=== PATIENT | male | born 1950 | race African-American/Black ===

== ENCOUNTER → 2023-10-07 07:30 | Outpatient (REF) | payer OTHER, SELFPAY ==
[2023-10-07 08:46] LABS: ALT (SGPT) 20 U/L (0-50); AST (SGOT) 24 U/L (17-59); Albumin 3.8 g/dl (3.5-5.0); Alkaline Phosphatase 92 U/L (38-126); Blood Urea Nitrogen 20 mg/dl (9-20); Calcium 10.5 mg/dl (8.4-10.2); Carbon Dioxide 30 mmol/L (22-30); Chloride 98 mmol/L (98-107); Glucose 247 mg/dl (70-99); HDL Cholesterol 38 mg/dl; LDL Cholesterol, Calculated 133 mg/dl; Potassium 4.4 mmol/L (3.5-5.1); Sodium 139 mmol/L (135-145); Total Cholesterol 210 mg/dl (50-199); Total Protein 8.4 g/dl (6.3-8.2); Triglyceride 197 mg/dl (10-149); Very Low Density Lipoprotein 39 mg/dl (0-30); eGFR > 60.00
[2023-10-07 08:47] LABS: Intact PTH 14.6 pg/ml (13.6-85.8)
== END ==
LOC: REG 07:30
PROVIDERS: ATTENDING PHYSICIAN Nurse Practitioner Family
DX: E83.52 Hypercalcemia (principal); E78.2 Mixed hyperlipidemia; R97.20 Elevated prostate specific antigen [PSA]; E55.9 Vitamin D deficiency, unspecified; Z12.5 Encounter for screening for malignant neoplasm of prostate
CPT/HCPCS: 36415; 80053; 80061; 82306; 83970; G0103

== ENCOUNTER 2023-10-29 12:19 | Inpatient (IN) | payer OTHER, SELFPAY ==
[2023-10-29] VITALS (36 sets, daily range): BP systolic 80–177; BP diastolic 22–136; BMI 23.6; BMI 23.9
[2023-10-29 10:11] LABS: % Basophils 0.7 % (0-2); % Immature Granulocytes 0.6 % (0-0.5); % Monocytes 4.7 % (1.7-9.3); Absolute Basophils 0.1 10^3/uL (0-0.2); Absolute Immature Granulocytes 0.1 10^3/uL (0-0.05); Absolute Lymphocytes 2.9 10^3/uL (1.2-3.4); Absolute Monocytes 0.8 10^3/uL (0.1-0.6); Absolute Neutrophils 12.3 10^3/uL (1.4-6.5); Hematocrit 49.5 % (39.0-52.0); Mean Corp Hgb Conc. 32.3 g/dL (33.0-37.0); Mean Corpuscular Hgb 24.1 pg (27.0-31.0); Mean Corpuscular Volume 74.5 fL (80.0-94.0); Mean Platelet Volume 10.8 fL (7.4-10.4); Nucleated Red Blood Cells % 0 % (-); Platelet Count 483 10^3/uL (130-400); Red Blood Cell Count 6.64 10^6/uL (4.70-6.10); Red Cell Dist. Width 19.3 % (11.5-14.5); White Blood Cell Count 16.2 10^3/uL (4.8-10.8)
[2023-10-29] MEDS: CARDIZEM 10 MG IV ×2 (10:11→10:38)
[2023-10-29] MEDS: NSS 1000 IV ×2 (10:14→13:42)
--- NOTE | 2023-10-29 10:18 | ED.GENMED ---
History of Present Illness
<Alecia Mcnair PA-C - Last Filed: 10/29/23 13:04>
General
Chief Complaint: Breathing Problem
Source: patient
Exam Limitations: none
Time Seen by Provider: 10/29/23 09:54
Nursing documentation reviewed up to this point in time: agreed with
Travel History
Have you had any contact with someone who has COVID-19?: No
Do you have any symptoms of coronavirus? Fever > 100 degrees, chills, cough, shortness of breath, sore throat, loss of taste or smell, muscle aches, or headache?: Yes
Symptoms:: SOB
History of Present Illness
History of Present Illness:
Patient is a 73-year-old male who is presenting for shortness of breath since yesterday. Patient says that he intermittently had hiccups yesterday and felt short of breath, he had a slight discomfort while he was having the hiccups but that
resolved yesterday. Otherwise he just feels fatigued and short of breath today. He has no pleuritic chest pain. He has had no black or tarry stools. No fevers or chills, cough cold symptoms, edema in his legs. Is no history of heart disease.
Back in February the patient was admitted for abdominal pain, CT showing acute diverticulitis. At that time he had thickening of his distal stomach and proximal duodenum with a mass that was concerning for possible gastric or duodenal carcinoma. He
also had a right upper quadrant lymphadenopathy suspicious for yosef metastatic disease. It was very concerning that the patient had a malignancy and he was offered an endoscopy and for biopsy but he refused, and he was discharged home. Patient
says since then he has had not had any workup for this possible malignancy.
Patient has never had a DVT or PE, he has not had any recent long travel.
Past History
<Alecia Mcnair PA-C - Last Filed: 10/29/23 13:04>
Past History
ED Past Medical History: GERD, HTN and Other (Patient has had abscesses in the past on different parts of his body, rheumatoid arthritis); Negative Hypercholesterolemia, IDDM or NIDDM
ED Past Surgical History: None
Social History
Tobacco: Former smoker
Alcohol: None
Drug: None
Personal:
Living: with family
Employment: Retired
Review of Systems
<Alecia Mcnair PA-C - Last Filed: 10/29/23 13:04>
Review of Systems
Allergies reviewed?: Yes
All Other Systems: Not applicable
Phy Exam
<JACIEL Soriano Last Filed: 10/29/23 13:04>
Physical Exam
Physical Exam:
GENERAL: Alert , in no apparent distress, pale
EYE: pupils equal and reactive
NECK: Supple
ENT: o/p clr, mmm.
CARDIAC: Tachycardic, no edema
LUNGS: Clear breath sounds bilaterally, no acute respiratory distress, no wheezes/rales/rhonchi, no rales
ABDOMEN: Soft, without focal tenderness, no r/g, no cvat, normal bowel sounds
heme neg brown stool
NEUROLOGICAL: Alert and oriented, no focal neuro deficits
SKIN: Warm and dry, skin intact.
MUSCULOSKELETAL: No edema, well perfused. neg carlos's sign
PSYCH: Normal and appropriate interaction.
Scores
<Alecia Mcnair PA-C - Last Filed: 10/29/23 13:04>
[id number] Score for Afib Stroke Risk
Age in Years (65=0, 65-74=1, >/=75=2): 65-74
Sex (Female=+1): Male
Congestive Heart Failure History (Yes=+1): No
Hypertension History (Yes=+1): Yes
Stroke/TIA/Thromboembolism History (Yes=+2): No
Vascular Disease History (Yes=+1): No
Diabetes Mellitus (Yes=+1): Yes
Score: 3
Anticoagulation Recommendations: Recommend anticoagulation (as validated in nonvalvular fib)
Heart Failure Risk
Heart Failure Risk Score: Not Applicable
<Alex Blake MD - Last Filed: 10/29/23 13:30>
[id number] Score for Afib Stroke Risk
Score: 3
Anticoagulation Recommendations: Recommend anticoagulation (as validated in nonvalvular fib)
Course
<Alecia Mcnair PA-C - Last Filed: 10/29/23 13:04>
Orders/Labs/Results
Orders:
Orders
10/29/23 Breakfast
NPO
Allow oral meds: No
Allow clear liquids: No
10/29/23 09:53
EKG [Electrocardiogram (*1)] Urgent
Reason for Study: Tachycardia
EKG- Treatment ONCE
10/29/23 09:55
Cardiac Monitoring- Treatment ONCE
IV Insert/Care/Rem.- Treatment PRN
10/29/23 09:58
Complete Blood Count/With Diff Urgent
Comprehensive Metabolic Panel Urgent
Glycohemoglobin (HgbA1c) Urgent
Magnesium Urgent
Comment: ADD ON
NT-proBNP Urgent
Troponin I Urgent
10/29/23 10:03
Diltiazem HCl [Cardizem] 10 mg IV NOW STA
10/29/23 10:14
0.9% Sodium Chloride 1000 ml [Nss] 1,000 ml IV BOLUS
10/29/23 10:23
Diltiazem HCl [Cardizem] 10 mg IV NOW STA
10/29/23 10:30
Diltiazem 125 mg/125 ml Nss [Cardizem] 125 mg in 125 ml IV PER PROTOCOL
Initial dose in mg/hr, then titrate:: 5
Titrate to keep:: Heart rate 80-100 bpm
Titrate by mg/hr:: 5 mg/hr
Frequency of titrations (minutes):: 15
Maximum dose in mg/hr:: 15
10/29/23 10:36
US Legs, Bilateral [US Periph Venous LOWER Ext Jonathon] Urgent
Comment:
Reason For Exam: sob/leg edema
10/29/23 10:44
Add On- LAB Urgent
Tests Added?: magnesium
10/29/23 10:45
Diltiazem 125 mg/125 ml Nss [Cardizem] 125 mg in 125 ml IV PER PROTOCOL
Initial dose in mg/hr, then titrate:: 5
Titrate to keep:: Heart rate 80-100 bpm
Titrate by mg/hr:: 5 mg/hr
Frequency of titrations (minutes):: 15
Maximum dose in mg/hr:: 15
10/29/23 10:48
BHB [B-Hydroxybutyrate] Urgent
Urinalysis Reflex To Culture Urgent
Date Specimen was Collected: 10/29/23
Time Specimen was Collected: 10:46
Venous Blood Gas Urgent
%Oxygen/Room Air: 21
10/29/23 10:53
Insulin Human Regular [Novolin R] 7 units IV NOW STA
CR Chest Portable - 1 View Urgent
Comment:
Reason For Exam: sob
Reason Study Needs to be Portable: Patient Unstable
10/29/23 11:00
Reg Insulin 100 Units/100 ml [Novolin R Insulin Infusion] 100 units in 100 ml IV ORDERED RATE
10/29/23 11:12
0.9% Sodium Chloride 500 ml [Nss] 500 ml IV BOLUS
10/29/23 11:13
Add On- LAB Urgent
Tests Added?: Hemoglobin A1c
10/29/23 11:25
Heparin 6,000 units IV NOW STA
Nursing to Place Non Medication Order As Directed
Physician Order: PTT 6 hours after initial start of Heparin infusion
Above order entered?: Yes
10/29/23 11:30
Heparin 18709 Units/250 ml 25,000 units in 250 ml IV PER PROTOCOL
Weight to be used for heparin protocol in kilograms (kg):: 74.5
Protocol:: DVT/PE
PTT Goal Range to be used:: PTT 73 to 111 seconds
Order type:: Initial
INITIAL Infusion Dose (UNITS/KG/hr) & then follow protocol:: 18 units/kg/hr
Infusion Dose in UNITS/hr & then follow protocol (UNITS/hr):: 1,300
INFUSION RATE in mL/hr & then follow protocol (mL/hr):: 13
For DVT/PE algorithm, re-bolus for low PTT?: Yes
PTT less than or equal to 64 seconds:: Re-bolus 80 units/kg (max 10,000units). Increase by 300 units/hr
(+ 3mL/hr)
PTT 64.1 to 72.9 seconds:: Re-bolus 40 units/kg (max 5,000 units). Increase by 200 units/hr
(+ 2mL/hr)
PTT 73 to 111 seconds:: Target Range. No change in rate.
PTT 111.1 to 130.9 seconds:: Decrease rate by 200 units/hr (- 2 mL/hr)
PTT 131 to 199.9 seconds:: HOLD for 1 hr. Then decrease by 200 units/hr (- 2mL/hr)
PTT greater than or equal to 200 seconds:: HOLD for 2 hrs & Notify Provider. Then decrease by 300 units/hr
(- 3mL/hr)
Lab follow-up:: Each change, PTT q6h until 2 consecutive are therapeutic. Then
PTT daily.
10/29/23 11:34
PTT Urgent
Comment: Obtain baseline before beginning heparin infusion if not already collected
10/29/23 11:43
Metoprolol [Lopressor] 5 mg IV NOW STA
10/29/23 11:48
Metoprolol [Lopressor] 5 mg .ROUTE .STK-MED ONE
10/29/23 11:49
Heparin See Dose Instructions IV PRN PRN
10/29/23 11:50
Heparin See Dose Instructions IV PRN PRN
10/29/23 11:53
EKG [Electrocardiogram (*1)] Urgent
Reason for Study: Atrial Fibrillation
EKG- Treatment ONCE
10/29/23 12:01
Admit/Transfer Patient As Directed
Co-Sign Provider:
Level of Care: Inpatient admission
Assign to:: ICU
Physician / Group: eleno maya
Diagnosis: afib with RVR,DKA
Reason for Hospitalization: afib with RVR,DKA
Expected length of stay greater than two midnights?: Yes
ELOS- Estimated Length of Stay in days: 3
I certify the patient meets the requirements for IP care: Yes
10/29/23 12:02
Code Status As Directed
Resuscitation Status: Full Code
10/29/23 12:08
Echo 2D MMode Color/Doppler [Echo 2D MMode Color/Doppler] Routine
Reason for Study: new afib
10/29/23 12:11
Consult Cardiology [CARDIOLOGY CONSULT] Urgent
Consulting Provider: Willow Lafleur
Was physician already notified: Yes
Modeling And Simulation Analyst Consult Urgent
Consulting Provider: Anoop Ness
Was physician already notified: Yes
10/29/23 12:18
Glucose Urgent
10/29/23 13:12
0.9% Sodium Chloride 1000 ml [Nss] 1,000 ml IV 1,000 mls/hr
Dextrose 5%/0.45%Sodchl 1000ML [D5/0.45%NaCl] 1,000 ml IV 100 mls/hr
Reg Insulin 100 Units/100 ml [Novolin R Insulin Infusion] 100 units in 100 ml IV PER PROTOCOL
Initial dose in units/hr, then titrate:: 7
10/29/23 13:12
Activity As Directed
Activity Level: As Tolerated
Bedside Glucose Monitoring As Directed
Frequency: Q1H
Intake/ Output As Directed
Frequency: Per unit guidelines
Notify MD As Directed
Notify physician if: Nurse to contact provider when glucose reaches 250 to obtain orders for D5 0.45 NaCl
Vital Signs As Directed
Frequency: Per unit guidelines
10/29/23 14:00
BMP [Basic Metabolic Panel] Q4H
Troponin I Q6H
10/29/23 16:00
Potassium Q2
Comment: report result to provider till Potassium >/= 3.3 to 5.3 mEq/L
10/29/23 17:36
PTT Urgent
10/29/23 18:00
BMP [Basic Metabolic Panel] Q4H
10/29/23 20:00
Potassium Q2
Comment: report result to provider till Potassium >/= 3.3 to 5.3 mEq/L
Troponin I Q6H
10/29/23 22:00
BMP [Basic Metabolic Panel] Q4H
10/30/23 00:00
Potassium Q2
Comment: report result to provider till Potassium >/= 3.3 to 5.3 mEq/L
10/30/23 02:00
BMP [Basic Metabolic Panel] Q4H
Potassium Q2
Comment: report result to provider till Potassium >/= 3.3 to 5.3 mEq/L
10/30/23 04:00
Potassium Q2
Comment: report result to provider till Potassium >/= 3.3 to 5.3 mEq/L
10/30/23 06:00
BMP [Basic Metabolic Panel] Q4H
Basic Metabolic Panel IN AM
Complete Blood Count/With Diff IN AM
10/30/23 10:00
BMP [Basic Metabolic Panel] Q4H
10/31/23 06:00
Basic Metabolic Panel IN AM
Complete Blood Count/With Diff IN AM
Abnormal Lab Results
10/29/23 10/29/23 10/29/23
09:58 10:48 12:18
WBC 16.2 H 10^3/uL
(4.8-10.8)
RBC 6.64 H 10^6/uL
(4.70-6.10)
MCV 74.5 L fL
(80.0-94.0)
MCH 24.1 L pg
(27.0-31.0)
MCHC 32.3 L g/dL
(33.0-37.0)
RDW 19.3 H %
(11.5-14.5)
Plt Count 483 H 10^3/uL
(130-400)
MPV 10.8 H fL
(7.4-10.4)
Abs Immat Gran (auto) 0.1 H 10^3/uL
(0-0.05)
Absolute Neuts (auto) 12.3 H 10^3/uL
(1.4-6.5)
Absolute Monos (auto) 0.8 H 10^3/uL
(0.1-0.6)
Immature Gran % 0.6 H %
(0-0.5)
Neutrophils % 76.0 H %
(42.2-75.2)
Lymphocytes % 18.0 L %
(20.5-51.1)
VBG pCO2 30 L mmHg
(35-48)
VBG pO2 153 H mmHg
(30-50)
VBG HCO3 16.6 L mmol/L
(22-27)
Sodium 125 L mmol/L
(135-145)
Potassium 5.6 H mmol/L
(3.5-5.1)
Chloride 84 L mmol/L
(98-107)
Carbon Dioxide 17 L mmol/L
(22-30)
BUN 41 H mg/dl
(9-20)
Creatinine 1.8 H mg/dL
(0.7-1.3)
Glucose 899 H* mg/dl 652 H* mg/dl
(70-99) (70-99)
Hemoglobin A1c 14.1 H %
(4.0-5.6)
Calcium 12.5 H mg/dl
(8.4-10.2)
Magnesium 3.0 H mg/dl
(1.6-2.3)
Alkaline Phosphatase 139 H U/L
(38-126)
Total Protein 9.1 H g/dl
(6.3-8.2)
Urine Ketones 2+ A
(Negative)
Urine Glucose 3+ A
(Negative)
B-Hydroxybutyrate > 6.00 H mmol/L
(0.02-0.27)
10/29/23 09:58
10/29/23 12:18
Vital Signs
Initial and Last Documented VS:
Initial Vital Signs
Temp
97.7 F
10/29/23 09:43
Last Documented Vital Signs
Temp Pulse Resp BP Pulse Ox
98.1 F 105 18 95/52 96
10/29/23 13:20 10/29/23 12:15 10/29/23 12:15 10/29/23 12:15 10/29/23 09:53
<Alex Blake MD - Last Filed: 10/29/23 13:30>
Orders/Labs/Results
Orders:
Orders
10/29/23 Breakfast
NPO
Allow oral meds: No
Allow clear liquids: No
10/29/23 09:53
EKG [Electrocardiogram (*1)] Urgent
Reason for Study: Tachycardia
EKG- Treatment ONCE
10/29/23 09:55
Cardiac Monitoring- Treatment ONCE
IV Insert/Care/Rem.- Treatment PRN
10/29/23 09:58
Complete Blood Count/With Diff Urgent
Comprehensive Metabolic Panel Urgent
Glycohemoglobin (HgbA1c) Urgent
Magnesium Urgent
Comment: ADD ON
NT-proBNP Urgent
Troponin I Urgent
10/29/23 10:03
Diltiazem HCl [Cardizem] 10 mg IV NOW STA
10/29/23 10:14
0.9% Sodium Chloride 1000 ml [Nss] 1,000 ml IV BOLUS
10/29/23 10:23
Diltiazem HCl [Cardizem] 10 mg IV NOW STA
10/29/23 10:30
Diltiazem 125 mg/125 ml Nss [Cardizem] 125 mg in 125 ml IV PER PROTOCOL
Initial dose in mg/hr, then titrate:: 5
Titrate to keep:: Heart rate 80-100 bpm
Titrate by mg/hr:: 5 mg/hr
Frequency of titrations (minutes):: 15
Maximum dose in mg/hr:: 15
10/29/23 10:36
US Legs, Bilateral [US Periph Venous LOWER Ext Jonathon] Urgent
Comment:
Reason For Exam: sob/leg edema
10/29/23 10:44
Add On- LAB Urgent
Tests Added?: magnesium
10/29/23 10:45
Diltiazem 125 mg/125 ml Nss [Cardizem] 125 mg in 125 ml IV PER PROTOCOL
Initial dose in mg/hr, then titrate:: 5
Titrate to keep:: Heart rate 80-100 bpm
Titrate by mg/hr:: 5 mg/hr
Frequency of titrations (minutes):: 15
Maximum dose in mg/hr:: 15
10/29/23 10:48
BHB [B-Hydroxybutyrate] Urgent
Urinalysis Reflex To Culture Urgent
Date Specimen was Collected: 10/29/23
Time Specimen was Collected: 10:46
Venous Blood Gas Urgent
%Oxygen/Room Air: 21
10/29/23 10:53
Insulin Human Regular [Novolin R] 7 units IV NOW STA
CR Chest Portable - 1 View Urgent
Comment:
Reason For Exam: sob
Reason Study Needs to be Portable: Patient Unstable
10/29/23 11:00
Reg Insulin 100 Units/100 ml [Novolin R Insulin Infusion] 100 units in 100 ml IV ORDERED RATE
10/29/23 11:12
0.9% Sodium Chloride 500 ml [Nss] 500 ml IV BOLUS
10/29/23 11:13
Add On- LAB Urgent
Tests Added?: Hemoglobin A1c
10/29/23 11:25
Heparin 6,000 units IV NOW STA
Nursing to Place Non Medication Order As Directed
Physician Order: PTT 6 hours after initial start of Heparin infusion
Above order entered?: Yes
10/29/23 11:30
Heparin 55149 Units/250 ml 25,000 units in 250 ml IV PER PROTOCOL
Weight to be used for heparin protocol in kilograms (kg):: 74.5
Protocol:: DVT/PE
PTT Goal Range to be used:: PTT 73 to 111 seconds
Order type:: Initial
INITIAL Infusion Dose (UNITS/KG/hr) & then follow protocol:: 18 units/kg/hr
Infusion Dose in UNITS/hr & then follow protocol (UNITS/hr):: 1,300
INFUSION RATE in mL/hr & then follow protocol (mL/hr):: 13
For DVT/PE algorithm, re-bolus for low PTT?: Yes
PTT less than or equal to 64 seconds:: Re-bolus 80 units/kg (max 10,000units). Increase by 300 units/hr
(+ 3mL/hr)
PTT 64.1 to 72.9 seconds:: Re-bolus 40 units/kg (max 5,000 units). Increase by 200 units/hr
(+ 2mL/hr)
PTT 73 to 111 seconds:: Target Range. No change in rate.
PTT 111.1 to 130.9 seconds:: Decrease rate by 200 units/hr (- 2 mL/hr)
PTT 131 to 199.9 seconds:: HOLD for 1 hr. Then decrease by 200 units/hr (- 2mL/hr)
PTT greater than or equal to 200 seconds:: HOLD for 2 hrs & Notify Provider. Then decrease by 300 units/hr
(- 3mL/hr)
Lab follow-up:: Each change, PTT q6h until 2 consecutive are therapeutic. Then
PTT daily.
10/29/23 11:34
PTT Urgent
Comment: Obtain baseline before beginning heparin infusion if not already collected
10/29/23 11:43
Metoprolol [Lopressor] 5 mg IV NOW STA
10/29/23 11:48
Metoprolol [Lopressor] 5 mg .ROUTE .STK-MED ONE
10/29/23 11:49
Heparin See Dose Instructions IV PRN PRN
10/29/23 11:50
Heparin See Dose Instructions IV PRN PRN
10/29/23 11:53
EKG [Electrocardiogram (*1)] Urgent
Reason for Study: Atrial Fibrillation
EKG- Treatment ONCE
10/29/23 12:01
Admit/Transfer Patient As Directed
Co-Sign Provider:
Level of Care: Inpatient admission
Assign to:: ICU
Physician / Group: eleno maya
Diagnosis: afib with RVR,DKA
Reason for Hospitalization: afib with RVR,DKA
Expected length of stay greater than two midnights?: Yes
ELOS- Estimated Length of Stay in days: 3
I certify the patient meets the requirements for IP care: Yes
10/29/23 12:02
Code Status As Directed
Resuscitation Status: Full Code
10/29/23 12:08
Echo 2D MMode Color/Doppler [Echo 2D MMode Color/Doppler] Routine
Reason for Study: new afib
10/29/23 12:11
Consult Cardiology [CARDIOLOGY CONSULT] Urgent
Consulting Provider: Willow Lafleur
Was physician already notified: Yes
Modeling And Simulation Analyst Consult Urgent
Consulting Provider: Anoop Ness
Was physician already notified: Yes
10/29/23 12:18
Glucose Urgent
10/29/23 13:12
0.9% Sodium Chloride 1000 ml [Nss] 1,000 ml IV 1,000 mls/hr
Dextrose 5%/0.45%Sodchl 1000ML [D5/0.45%NaCl] 1,000 ml IV 100 mls/hr
Reg Insulin 100 Units/100 ml [Novolin R Insulin Infusion] 100 units in 100 ml IV PER PROTOCOL
Initial dose in units/hr, then titrate:: 7
10/29/23 13:12
Activity As Directed
Activity Level: As Tolerated
Bedside Glucose Monitoring As Directed
Frequency: Q1H
Intake/ Output As Directed
Frequency: Per unit guidelines
Notify MD As Directed
Notify physician if: Nurse to contact provider when glucose reaches 250 to obtain orders for D5 0.45 NaCl
Vital Signs As Directed
Frequency: Per unit guidelines
10/29/23 14:00
BMP [Basic Metabolic Panel] Q4H
Troponin I Q6H
10/29/23 16:00
Potassium Q2
Comment: report result to provider till Potassium >/= 3.3 to 5.3 mEq/L
10/29/23 17:36
PTT Urgent
10/29/23 18:00
BMP [Basic Metabolic Panel] Q4H
10/29/23 20:00
Potassium Q2
Comment: report result to provider till Potassium >/= 3.3 to 5.3 mEq/L
Troponin I Q6H
10/29/23 22:00
BMP [Basic Metabolic Panel] Q4H
10/30/23 00:00
Potassium Q2
Comment: report result to provider till Potassium >/= 3.3 to 5.3 mEq/L
10/30/23 02:00
BMP [Basic Metabolic Panel] Q4H
Potassium Q2
Comment: report result to provider till Potassium >/= 3.3 to 5.3 mEq/L
10/30/23 04:00
Potassium Q2
Comment: report result to provider till Potassium >/= 3.3 to 5.3 mEq/L
10/30/23 06:00
BMP [Basic Metabolic Panel] Q4H
Basic Metabolic Panel IN AM
Complete Blood Count/With Diff IN AM
10/30/23 10:00
BMP [Basic Metabolic Panel] Q4H
10/31/23 06:00
Basic Metabolic Panel IN AM
Complete Blood Count/With Diff IN AM
Abnormal Lab Results
10/29/23 10/29/23 10/29/23
09:58 10:48 12:18
WBC 16.2 H 10^3/uL
(4.8-10.8)
RBC 6.64 H 10^6/uL
(4.70-6.10)
MCV 74.5 L fL
(80.0-94.0)
MCH 24.1 L pg
(27.0-31.0)
MCHC 32.3 L g/dL
(33.0-37.0)
RDW 19.3 H %
(11.5-14.5)
Plt Count 483 H 10^3/uL
(130-400)
MPV 10.8 H fL
(7.4-10.4)
Abs Immat Gran (auto) 0.1 H 10^3/uL
(0-0.05)
Absolute Neuts (auto) 12.3 H 10^3/uL
(1.4-6.5)
Absolute Monos (auto) 0.8 H 10^3/uL
(0.1-0.6)
Immature Gran % 0.6 H %
(0-0.5)
Neutrophils % 76.0 H %
(42.2-75.2)
Lymphocytes % 18.0 L %
(20.5-51.1)
VBG pCO2 30 L mmHg
(35-48)
VBG pO2 153 H mmHg
(30-50)
VBG HCO3 16.6 L mmol/L
(22-27)
Sodium 125 L mmol/L
(135-145)
Potassium 5.6 H mmol/L
(3.5-5.1)
Chloride 84 L mmol/L
(98-107)
Carbon Dioxide 17 L mmol/L
(22-30)
BUN 41 H mg/dl
(9-20)
Creatinine 1.8 H mg/dL
(0.7-1.3)
Glucose 899 H* mg/dl 652 H* mg/dl
(70-99) (70-99)
Hemoglobin A1c 14.1 H %
(4.0-5.6)
Calcium 12.5 H mg/dl
(8.4-10.2)
Magnesium 3.0 H mg/dl
(1.6-2.3)
Alkaline Phosphatase 139 H U/L
(38-126)
Total Protein 9.1 H g/dl
(6.3-8.2)
Urine Ketones 2+ A
(Negative)
Urine Glucose 3+ A
(Negative)
B-Hydroxybutyrate > 6.00 H mmol/L
(0.02-0.27)
03/03/24 09:58
10/29/23 12:18
Vital Signs
Initial and Last Documented VS:
Initial Vital Signs
Temp
97.7 F
10/29/23 09:43
Last Documented Vital Signs
Temp Pulse Resp BP Pulse Ox
98.1 F 105 18 95/52 96
10/29/23 13:20 10/29/23 12:15 10/29/23 12:15 10/29/23 12:15 10/29/23 09:53
<Alecia Mcnair PA-C - Last Filed: 10/29/23 13:04>
MDM/Problems Addressed
Differential Diagnosis Includes:
SVT, atrial fibrillation, PE
MDM/Problems Addressed:
73-year-old male presenting for shortness of breath since yesterday without significant chest discomfort. Patient was found to be tachycardic in the 150s, blood pressure slightly soft in the low 100s. He is awake and alert and oriented and in no
respiratory distress.
We tried vagal maneuvers which did slightly slow him down however it looks irregular, I suspect that he has a flutter with 2-1 block. He will be given an IV dose of Cardizem with fluid bolus and likely a Cardizem drip. Will work him up for PE as
it sounds as if he has malignant adenocarcinoma from previous imaging, I would be concerned about a PE causing new onset A-fib
10/29/2023 1057 AM patient was found to have an RUDY and cannot have a CT scan of his chest. Patient's pulse ox is normal, PE is less likely at this point.
Patient's blood sugar is 900, his anion gap is 25. He apparently was told about 2 months ago that his blood sugar was elevated but he chose not to treat it.
Patient is agreeable to insulin at this point, it is still questionable whether he will want a workup for malignancy
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
cdsvasc is 3
heparin initiated;
<Alecia Mcnair PA-C - Last Filed: 10/29/23 13:04>
*Critical Care Note
Total Time (30-74mins, 75-104mins- exclusive of procedures): Not Applicable (45 min - rate control/cv stability, consultants)
ED Attending Note
<Alecia Mcnair PA-C - Last Filed: 10/29/23 13:04>
-
Portions of this chart may have been created with voice recognition software.� Occasional wrong word or��sound alike� substitutions may have occurred due to the inherent limitations of voice recognition software.
<Alex Blake MD - Last Filed: 10/29/23 13:30>
ED Attending Note
Patient seen and examined by attending physician: Yes
ED Attending Note:
Patient with history of hypertension and COPD, presents to ED secondary to increasing shortness of breath over the past 2 days, especially with exertion. Patient states that symptoms started yesterday afternoon while he was sitting down watching
TV. Symptoms improved spontaneously shortly afterwards, but returned and has been ongoing since. Denies chest pain. Denies nausea, vomiting, or diarrhea. Denies fever. Denies coughing. Denies back pain. Denies leg pain or swelling. Denies
recent travel or surgery. Denies sore throat. Denies headache. Denies recent change in medications or diet. Denies recent weight changes.
Physical Exam
General: mild distress, acutely ill. afebrile. tachycardic.
Head: nc/at. eomi
Neck: supple. no meningeal signs.
Heart: tachycardic, no murmur. equal radial pulses.
Lungs: no acute respiratory distress. clear bilaterally
Abdomen: normal bowel sounds. not tender.
Neuro: alert and oriented. no focal neurological deficits
Skin: no rash
Psychiatric: well kept. interactive and cooperative
Extremities: no edema. no calf tenderness.
Pt evaluated immediately upon arrival. Patient found to be tachycardic, in narrow complex rhythm and regular. SVT versus atrial flutter. Patient given IV fluids and Cardizem bolus with infusion. Unfortunately, after multiple doses of Cardizem
IV, lower than recommended weight-based dosing due to labile blood pressure, patient's heart rate remains elevated. As such, decision made to administer Lopressor IV 5 mg, with improved heart rate. Repeat EKG reveals rate controlled a flutter with
variable block. In reviewing patient's previous imaging studies, there is concern for potential pulmonary embolism as source for his onset of symptoms. As such, CTA chest ordered. Unfortunately, patient blood work revealed acute renal failure
along with hyperglycemia with anion gap. As such, CTA chest canceled and lower extremity Doppler study ordered instead. In addition, as patient is high risk for PE along with new onset atrial fibrillation, patient started on heparin protocol.
Patient will be admitted to ICU for further evaluation and treatment.
Insulin infusion started.
Critical care statement: A total of 45 minutes of critical care time was provided for this patient. This includes management of unstable vital signs, evaluation of the patient at bedside, reviewing the patient's pertinent medical records, discussion
with consultants, review of old EKGs and review of pertinent medical records. This time with separate from time utilized to perform the aforementioned documented procedures
Discharge Plan
Departure
Patient Disposition: Admit
Date of Disposition: 10/29/23
Time of Disposition: 10:41
Admit to: ICU
Presentation/result/management discussed w/ accepting MD/DO: Hospitalist
Condition: Fair
Covid-19: Not Applicable
Discharge Problem:
Atrial fibrillation, new onset, Atrial fibrillation with RVR, Acute kidney insufficiency
Interventions
Interventions:
*Risk Screen - Suicide Last Done: 10/29/23 13:30
*General Assessment Last Done: 10/29/23 13:14
*Neglect/Abuse Screening Last Done: 10/29/23 13:14
ED- Fall Risk Assessment Last Done: 10/29/23 13:14
*Nursing Disposition Last Done: 10/29/23 13:15
ED- Cardiac Assessment Last Done: 10/29/23 12:12
ED- Pulmonary Assessment Last Done: 10/29/23 13:14
Discharge Date and Time
Discharge Date/Time: 10/29/23 13:16
[2023-10-29 10:33] LABS: NT-proBNP 458 pg/ml; Troponin I < 0.012 ng/ml
[2023-10-29 10:34] LABS: AST (SGOT) 23 U/L (17-59); Albumin 4.7 g/dl (3.5-5.0); Alkaline Phosphatase 139 U/L (38-126); Blood Urea Nitrogen 41 mg/dl (9-20); Calcium 12.5 mg/dl (8.4-10.2); Carbon Dioxide 17 mmol/L (22-30); Chloride 84 mmol/L (98-107); Estimated Creatinine Clearance 38 ml/min; Potassium 5.6 mmol/L (3.5-5.1); Sodium 125 mmol/L (135-145); Total Bilirubin 1.1 mg/dl (0.2-1.3); Total Protein 9.1 g/dl (6.3-8.2)
[2023-10-29] MEDS: CARDIZEM 125 IV ×2 (10:37→20:48)
[2023-10-29 10:43] LABS: Glucose 899 mg/dl (70-99)
[2023-10-29 11:03] LABS: ALT (SGPT) 30 U/L (0-50)
[2023-10-29] MEDS: NOVOLIN R 7 UNITS IV (11:07)
[2023-10-29] MEDS: NOVOLIN R INSULIN INFUSION 100 IV (11:12)
[2023-10-29 11:13] LABS: Venous Blood Gas B.E. -7.6 mmol/L (-4 to +4); Venous Blood Gas HCO3 16.6 mmol/L (22-27); Venous Blood Gas pCO2 30 mmHg (35-48); Venous Blood Gas pH 7.35 (7.32-7.43); Venous Blood Gas pO2 153 mmHg (30-50)
[2023-10-29 11:17] LABS: Urine Albumin Negative (Neg - Trace); Urine Bilirubin Negative (Negative); Urine Character Clear (Clear); Urine Color Yellow; Urine Glucose 3+ (Negative); Urine Ketone 2+ (Negative); Urine Leukocyte Negative (Negative); Urine Nitrite Negative (Negative); Urine Occult Blood Negative (Negative); Urine Urobilinogen Negative (Neg - 1+)
[2023-10-29] MEDS: NSS 500 IV (11:19)
[2023-10-29 11:30] LABS: B-Hydroxybutyrate > 6.00 mmol/L (0.02-0.27)
[2023-10-29] MEDS: HEPARIN 6000 UNITS IV (11:36)
[2023-10-29 11:52] LABS: APTT 30.5 Sec (23.4-35.0)
[2023-10-29] MEDS: HEPARIN 25000 UNITS/250 ML IV (11:56)
[2023-10-29 12:01] LABS: Glycohemoglobin (HgbA1c) 14.1 % (4.0-5.6)
[2023-10-29] MEDS: LOPRESSOR 5 MG IV (12:03)
--- NOTE | 2023-10-29 12:12 | HPS.HSE ---
Family Physician
-
Family Physician: DINESH Yoo
Chief Complaint
-
Shortness of breath
History of Present Illness
73-year-old male with past medical history of GERD, hypertension, iron deficiency anemia, rheumatoid arthritis, COPD, diverticulosis came to the hospital with shortness of breath that got worse since yesterday. Patient denies any fever/chills.
Reports compliant with all his medications. Denies any vomiting however did had nausea last night. Denies any abdominal pain. In the ED patient was in atrial flutter with RVR and in diabetic ketoacidosis. Denies any sick contacts. Denies any
history of diabetes. Patient was here last year with abdominal pain where CT scan was consistent with diverticulitis. At that time patient also had distal stomach and proximal duodenal thickening concerning for malignancy however patient refused
endoscopy.
Medical History
Past Medical History
Past Medical History: Reports GERD, HTN and Other (see HPI)
Past Surgical History: Reports None
Social History
Tobacco: Non-smoker
Alcohol: None
Family History
Family History: Not pertinent
Allergies / Home Medications
Allergies reflects when Allergies were last updated in [employer].
Home Medications with original date entered in [employer]
Allergy/Medication List:
Allergies
Allergy/AdvReac Type Severity Reaction Status Date / Time
No Known Allergies Allergy Verified 10/29/23 09:38
Home Medications
therapeutic multivitamin 1 tab PO DAILY ##0 04/19/13
ferrous sulfate 325 mg (65 mg iron) tablet,delayed release 325 mg PO DAILY #100 tabs 03/27/23
xmhupbi-xmgfsssijiplu-eqvtylyh 250 mg-250 mg-65 mg tablet (Excedrin Extra Strength) 1 tab PO DAILYPRN PRN headaches 10/29/23
calcium carbonate 200 mg calcium (500 mg) chewable tablet (Tums) 200 mg PO TIDPRN PRN gerd 10/29/23
lisinopril 10 mg tablet 10 mg PO DAILY 10/29/23
metoprolol succinate 25 mg tablet,extended release 24 hr (Toprol XL) 25 mg PO DAILY 10/29/23
Review of Systems
-
History Source: Patient
A 12 point ROS was completed and negative except as noted: Yes
Respiratory: Reports Trouble Breathing
Physical Exam
Vital Signs
Vital Signs
Temp Pulse Resp BP Pulse Ox
98.6 F 130 18 100/65 96
10/29/23 09:57 10/29/23 10:38 10/29/23 09:53 10/29/23 10:38 10/29/23 09:53
Physical Exam
General: Well Nourished and No Apparent Distress
HEENT: Anicteric and Moist mucous membranes
Respiratory: Clear and Non Labored Respirations; No Wheezes
Cardiac: Irregular Rhythm and Tachycardia
Breast: Deferred by me
GI: Soft, Non Tender, Non Distended and Normal Bowel Sounds
Rectal: Deferred by Provider
Genito-urinary: No Cruz
Musculoskeletal: No Edema
Neuro: Awake, Alert, Oriented and AO x 3
Psych: Calm and Intact Judgment/Insight
Laboratory Results
-
10/29/23 09:58
10/29/23 09:58
Laboratory Results
APTT 30.5 Sec (23.4-35.0) 10/29/23 11:34
Total Bilirubin 1.1 mg/dl (0.2-1.3) 10/29/23 09:58
AST 23 U/L (17-59) 10/29/23 09:58
ALT 30 U/L (0-50) 10/29/23 09:58
Alkaline Phosphatase 139 U/L (38-126) H 10/29/23 09:58
Troponin I < 0.012 ng/ml 10/29/23 09:58
Data Reviewed
-
Lab Data: Labs Reviewed by me, Discussed with Patient and Discussed with Family
Impression/Plan
-
Shortness of breath likely secondary atrial flutter with RVR; unknown chronicity
start diltiazem gtt; heparin gtt
echo
check trop
cardiology evaluation
denies chest pain
CXR without PNA
venous doppler LE without DVT
consider CT chest once creatinine improves
monitor leukocytosis
DKA
admit to ICU
no hx of diabetes
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
Start insulin drip
Anion gap 24
once BS<250 then start D5
currently hyperkalemia; once K lowers then would need repletion
BMP Q4h; accucheck Q1H
BS 899 on admission
check bcx; Ua without UTI; CXR with no PNA
NPO until gap closes
RUDY suspect 2/2 DKA
monitor
bladder scan
Ua without UTI
Pseudohyponatremia
Corrected sodium 138
Monitor
Hypercalcemia
Monitor with fluids
History of hypertension
Hold lisinopril and metoprolol at this time
Currently blood pressure low, monitor with fluids
History of gastric and duodenal thickening concerning for malignancy
Patient refused endoscopy in the past. Patient to follow-up outpatient
History of iron deficiency anemia
History of diverticulosis with diverticulitis
hx of rheumatoid arthritis
DVTppx
heparin
Full code
Updated spouse at bedside
Total Critical Care Time__48___ minutes. I was immediately available to the patient and staff. I personally examined, reviewed labs, diagnostic images/reports, interpretations, treatment plans, discussed patient care with other providers and
family or caregivers (if patient is unable to make decisions), entered orders as appropriate and documented the medical record.
[2023-10-29 13:01] LABS: Glucose 652 mg/dl (70-99)
[2023-10-29] MEDS: D5/0.45%NACL IV (13:52)
[2023-10-29 14:17] LABS: Glucose - Point of Care 442 mg/dl (70-99)
[2023-10-29 14:49] LABS: Blood Urea Nitrogen 40 mg/dl (9-20); Calcium 11.1 mg/dl (8.4-10.2); Carbon Dioxide 17 mmol/L (22-30); Chloride 103 mmol/L (98-107); Estimated Creatinine Clearance 49 ml/min; Glucose 481 mg/dl (70-99); Potassium 3.8 mmol/L (3.5-5.1); Sodium 133 mmol/L (135-145)
[2023-10-29 14:52] LABS: Troponin I 0.013 ng/ml
--- NOTE | 2023-10-29 16:09 | CON.INTV ---
Consultation
Consultation Request
Date/Time Consultation Requested: 10/29/2023 - 121
Date/Time Consultation Performed: 10/29/2023 - 1401
Requesting Provider: Dr. Hyde
Performing Provider: Dr. Ness
Reason for Consultation: A-fib with RVR/hyperglycemia
Medical History
-
Chief Complaint: SOB
History of Present Illness:
73-year-old male with a past medical history of COPD, rheumatoid arthritis, iron deficiency anemia, GERD and hypertension who presents with shortness of breath. In the ER patient was tachycardic to 105, hypotensive with BP 95/52, and saturating 96%
on room air. He was found to be in atrial flutter. Blood gas showed a metabolic acidosis with pH 7.35, pCO2 30. Serum sodium 125, potassium 5.6, creatinine 1.8, glucose 652, A1c 14.1, white blood cell 16.2, Hb 16 and platelets 483. Beta
hydroxybutyrate level was >6. He had 2+ urinary ketones. IV fluids were started with 1.5 L of NS 0.9%. He was given regular insulin 7 units, metoprolol, 10 mg Cardizem. Additional rate control was still needed hence Cardizem drip was started.
Heparin drip also begun. Due to hyperglycemia, insulin drip started. Patient transferred to the ICU for admission and critical care services consulted for additional management/recommendations.
When I saw the patient he was in bed, on Cardizem drip at 15 mg/h, insulin drip at 3 units/h, and D5 1/2 NS at 100cc/hr. heart rate 116, BP 84/59, saturating 97% on room air. He had called his saying to come get him as he wants to leave. He
was unable to give me an exact reason as to why he wants to leave, except that he 'is 73 years old and that he cannot put up with this.' The , Toshia, called here the ICU and I spoke with her directly. I explained to her the critically ill state
that her is in and that if he leaves AMA at this time that he would have a high chance of . She understands that he is sick, and she is in agreement with us, and will not come to pickling drum operator Roge at this time. I answered all of her
questions and she verbalized understanding.
Of note, patient previously followed up with us in the office with Dr. Sánchez. He was diagnosed with COPD with asthma, was started on Flovent 110mcg/actuation, as well as albuterol as needed. He had spirometry on 06/15/2021 showing an FEV1/FVC of
64, with a postbronchodilator FEV1 of 102% predicted. Postbronchodilator FEV1/FVC was 68.
PMHx: GERD, hypertension, iron deficiency anemia, rheumatoid arthritis, seasonal allergies
PSHx: Biopsy
Past Medical History
Past Medical History: Other (Above as per HPI)
Past Surgical History: Other (Above as per HPI)
Social History
Tobacco: Former Smoker (1-1.5 packs/day, quit at age 41)
Alcohol: None
Drug: None
Family History
Family History: CAD (Father; mother)
Allergies / Home Medications
Allergies
Allergy/AdvReac Type Severity Reaction Status Date / Time
No Known Allergies Allergy Verified 10/29/23 09:38
Home Medications
Medication Instructions Recorded Confirmed Last Taken Type
therapeutic multivitamin 1 tab PO DAILY ##0 04/19/13 10/29/23 04/18/13 History
ferrous sulfate 325 mg (65 mg 325 mg PO DAILY #100 tabs 03/27/23 10/29/23 Unknown Rx
iron) tablet,delayed release
kuhnjwt-wznebxgxfgyda-vluddhbk 250 1 tab PO DAILYPRN PRN headaches 10/29/23 10/29/23 Unknown History
mg-250 mg-65 mg tablet (Excedrin
Extra Strength)
calcium carbonate 200 mg calcium 200 mg PO TIDPRN PRN gerd 10/29/23 10/29/23 Unknown History
(500 mg) chewable tablet (Tums)
lisinopril 10 mg tablet 10 mg PO DAILY 10/29/23 10/29/23 10/29/23 History
metoprolol succinate 25 mg 25 mg PO DAILY 10/29/23 10/29/23 10/29/23 History
tablet,extended release 24 hr
(Toprol XL)
Review of Systems
-
Unable to Obtain full review of systems at this time due to: Acuity
Vitals / Labs / Diagnostic Testing
Vital Signs
Temp Pulse Resp BP Pulse Ox
98.3 F 114 22 101/62 93
10/29/23 15:14 10/29/23 14:45 10/29/23 14:45 10/29/23 14:00 10/29/23 14:45
Lab Data
10/29/23 09:58
Laboratory Results
10/29/23
11:34
APTT 30.5
Diagnostic Testing:
Physical Exam
-
HEENT: Normocephalic and Anicteric
Cardiovascular: Irregular Rhythm and Other (tachycardic)
Respiratory: Clear, Wheeze (n), Rales (n), Rhonchi (n) and Non-Labored Respirations
GI: Soft, Non Distended and Non Tender
Neurology: Awake and Other (confused at times)
Skin: Warm and Dry
General: Comfortable and Chills (n)
Assessment
-
Assessment: 73-year-old male with a past medical history of COPD, rheumatoid arthritis, iron deficiency anemia, GERD and hypertension who presents with shortness of breath. In the ER patient was tachycardic to 105, hypotensive with BP 95/52, and
saturating 96% on room air. He was found to be in atrial flutter. Blood gas showed a metabolic acidosis with pH 7.35, pCO2 30. Serum sodium 125, potassium 5.6, creatinine 1.8, glucose 652, A1c 14.1, white blood cell 16.2, Hb 16 and platelets 483.
Beta hydroxybutyrate level was >6. He had 2+ urinary ketones. IV fluids were started with 1.5 L of NS 0.9%. He was given regular insulin 7 units, metoprolol, 10 mg Cardizem. Additional rate control was still needed hence Cardizem drip was
started. Heparin drip also begun. Due to hyperglycemia, insulin drip started. Patient transferred to the ICU for admission and critical care services consulted for additional management/recommendations.
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
Impression:
#Atrial flutter with rapid ventricular rate
#DM type II c/b DKA
#Pseudohyponatremia
#Acute kidney injury
#Metabolic acidosis due to above (RUDY and DKA)
#Leukocytosis
#AMS and has been 'dropping' things at home
#Hx of severe circumferential wall thickening of the stomach/duodenum with lymphadenopathy of right upper quadrant lymph nodes concerning for metastatic disease (seen on CT A/P from February 2023)
Plan:
- Continue insulin infusion with q1hr POCT and serial BMP, Mg and PO4 q4hr
- Eventual goal BG 140-180mg/dL
- Rate control of HR with goal <110bpm
- Wean off cardizem gtt as tolerated
- Continue heparin gtt
- Cardiology consulted
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
- Replete K>4, Mg>2
- check a non-urgent CT head (can be done tomorrow AM) due to him dropping things at home and confusion
- Would also recommend GI consult as his CT A/P from February 2023 showed severe circumferential wall thickening of his gastric antrum and 1st duodenum, and LN of RUQ, c/f malignancy
- Check TTE
- Maintain MAP>65
- Trend WBC; UA is clear and CXR shows no evidence of PNA --> hold off on Abx for now
- DVT ppx
Critical care statement: A total of 40 minutes of critical care time was provided for this patient today. This includes management of unstable vital signs, evaluation of the patient at bedside, reviewing the patient's pertinent medical records
including radiographs, microbiology, laboratory evaluations, and discussion with primary team, consultants, pharmacy, nutrition, physical therapy, case management, charge nurse, critical care nursing, and respiratory therapy.
Data:
CXR 10-29-2023: No acute cardiopulmonary process.
CT Abd/Pelvis with IV and PO Contrast :
1. � Severe circumferential irregular wall thickening in the distal stomach and proximal duodenum suspicious for GASTRIC or DUODENAL ADENOCARCINOMA. Lymphoma is an alternative diagnostic possibility. Peptic ulcer disease is a less likely diagnostic
consideration given the absence of surrounding inflammation and fluid.
2. � Moderate amount of RIGHT UPPER QUADRANT LYMPHADENOPATHY very suspicious for RADHA METASTATIC DISEASE. Reactive lymphadenopathy is considered less likely.
3. � Small cysts and possibly small metastases in the liver.
4. � Severe diverticular disease in the SIGMOID COLON with MILD ACUTE DIVERTICULITIS.
5. � Small hiatal hernia.
6. � Moderately enlarged prostate gland.
7. � Small bilateral inguinal hernias containing urinary bladder.
8. � Severe discogenic degenerative disease and facet joint arthrosis in the lumbar spine.
[2023-10-29 16:21] LABS: Glucose - Point of Care 363 mg/dl (70-99)
--- NOTE | 2023-10-29 16:30 | PTCARENOTE ---
Rec'd pt at approx 1310 from ED. Pt alert and awake, slow speech/flat affect. Forgetful to time and situation. Pt follows commands, restless at times and tries to climb OOB. Bed alarm in place. Monitor Afib/Aflutter 130's on 5mg/hr Cardizem gtts,
titrated up to 15mg/hr, HR 110's at this time Aflutter. Heparin gtts infusing at 1300units/hr. Insulin gtts at 7units/hr with q1hr accuchecks and frequent lab draws. Assisted pt to use urinal, pt insisted that he could do it on his own, RN remained
at pt's side, pt's gait very unsteady and pt unable to stay standing, pt then sat on side of bed to use urinal and assisted back to bed. Pt had attempted to climb OOB and stated that he was going home and 'this is not a alf'. Pt attempted to call
using his cellphone, took pt ~10min to figure out how to use phone correctly and pt dropping it frequently. Pt stated during admission that he has been dropping items frequently at home. Pt spoke to on phone and urged pt to remain in
hospital, pt agreeable and laid back down in bed. RN spoke with separately on phone to give update and review current situation and plan of care. stated pt's mental status has been getting progressively worse.
[2023-10-29 16:33] LABS: Potassium 3.8 mmol/L (3.5-5.1)
[2023-10-29] MEDS: KCL 270 MEQ IV (16:45)
[2023-10-29 17:13] LABS: Glucose - Point of Care 306 mg/dl (70-99)
[2023-10-29] MEDS: D5/0.45%NACL 1000 IV (18:10)
[2023-10-29 18:17] LABS: Glucose - Point of Care 231 mg/dl (70-99)
[2023-10-29 18:42] LABS: Blood Urea Nitrogen 38 mg/dl (9-20); Calcium 10.8 mg/dl (8.4-10.2); Carbon Dioxide 22 mmol/L (22-30); Chloride 107 mmol/L (98-107); Estimated Creatinine Clearance 63 ml/min; Glucose 277 mg/dl (70-99); Potassium 3.8 mmol/L (3.5-5.1); Sodium 136 mmol/L (135-145); eGFR > 60.00
[2023-10-29 19:16] LABS: Glucose - Point of Care 246 mg/dl (70-99)
[2023-10-29] MEDS: NSS IV (19:44)
[2023-10-29 20:22] LABS: Glucose - Point of Care 259 mg/dl (70-99)
--- NOTE | 2023-10-29 20:33 | PTCARENOTE ---
Assumed care of pt at 1900. Pt is A/O x2-3, forgetful, flat affect, slow to respond at times. Pt was disoriented to place, knew he was in the hospital but unsure which one, and is not oriented to situation. Received pt on Heparin drip (was on hold
at start of shift but then restarted at 1100 units/hr per protocol), Cardizem drip at 10mg/hr, Insulin drip per DKA protocol and IVF per DKA protocol. AFlutter 110s on monitor. SpO2 94-95% on RA. Physical assessment completed, see nursing shift
assessment flowsheet for full details. Bed alarm activated.
[2023-10-29 21:18] LABS: Glucose - Point of Care 222 mg/dl (70-99)
[2023-10-29 22:17] LABS: Glucose - Point of Care 191 mg/dl (70-99)
[2023-10-29 22:29] LABS: Blood Urea Nitrogen 33 mg/dl (9-20); Calcium 10.4 mg/dl (8.4-10.2); Carbon Dioxide 23 mmol/L (22-30); Chloride 111 mmol/L (98-107); Estimated Creatinine Clearance 69 ml/min; Glucose 194 mg/dl (70-99); Potassium 3.8 mmol/L (3.5-5.1); Sodium 136 mmol/L (135-145); eGFR > 60.00
--- NOTE | 2023-10-29 22:37 | CON.CAR ---
Consultation
Consultation Request
Date/Time Consultation Requested: 10/29/23
Date/Time Consultation Performed: 10/29/23
Requesting Provider: Dr. Hyde
Performing Provider: Dr. Lafleur
Reason for Consultation: New atrial fibrillation
Medical History
-
Chief Complaint: Dyspnea on exertion
History of Present Illness:
I had the pleasure to meet Jeff Khanna in ICU 3370 for evaluation of new rapid atrial flutter in the setting of DKA. Jeff is a 73-year-old gentleman with a history of COPD, rheumatoid arthritis, iron deficiency anemia, GERD, hypertension, prior
diverticulitis in February 2023 with imaging raising concern for possible gastric or duodenal carcinoma and remote tobacco use. He apparently did not proceed with further evaluation and has not followed up with GI. He denies prior cardiac evaluation.
He denies a history of atrial fibrillation, stroke/TIA, known coronary artery disease, or heart failure. No history of thromboembolic disease. No recent COVID/flu or URI. In the ED he was found to be hypotensive and hypoxic with initial pulse ox
80 on room air and tachycardic with new atrial flutter. Initial labs found sodium 125, potassium 5.6, BUN and creatinine 41/1.8. Random glucose 652 with hemoglobin A1c 14.1. Calcium 12.5. Magnesium 3. LFTs within normal limits. Alkaline
phosphatase elevated 139. Cardiac troponin less than 0.012. proBNP 458. Hemoglobin 16. WBC 16.2, MCV 74, platelets 480,000. Beta hydroxybutyrate greater than 6. He was admitted to the ICU for treatment of uncontrolled type 2 diabetes with DKA.
Cardiology was consulted for new rapid atrial flutter. Patient is a difficult historian however denies chest pain or pressure. Denies tachycardia/palpitations.
Past medical history: GERD, hypertension, iron deficiency anemia, rheumatoid arthritis, type 2 diabetes mellitus, CT abdomen abnormalities concerning for malignancy February 2023, unclear if he has proceeded with workup
Past surgical history: Abscess drainage right buttocks
Past Medical History
Past Medical History: Other (See HPI)
Past Surgical History: Other (See HPI)
Social History
Tobacco: Former Smoker (Quit smoking age 41)
Alcohol: None
Drug: None
Personal:
Living: With Family
Employment: Retired
Family History
Family History: Other (Coronary artery disease in his mother, coronary artery disease and prostate cancer in his father. Prostate cancer and colon cancer in his brother.)
Allergies / Home Medications
Allergy/AdvReac Type Severity Reaction Status Date / Time
No Known Allergies Allergy Verified 10/29/23 09:38
Medication Instructions Recorded Confirmed Type
therapeutic multivitamin 1 tab PO DAILY ##0 04/19/13 10/29/23 History
ferrous sulfate 325 mg (65 mg 325 mg PO DAILY #100 tabs 03/27/23 10/29/23 Rx
iron) tablet,delayed release
xncffgt-ksofldfkyjtlp-zzmlpoif 250 1 tab PO DAILYPRN PRN headaches 10/29/23 10/29/23 History
mg-250 mg-65 mg tablet (Excedrin
Extra Strength)
calcium carbonate 200 mg calcium 200 mg PO TIDPRN PRN gerd 10/29/23 10/29/23 History
(500 mg) chewable tablet (Tums)
lisinopril 10 mg tablet 10 mg PO DAILY 10/29/23 10/29/23 History
metoprolol succinate 25 mg 25 mg PO DAILY 10/29/23 10/29/23 History
tablet,extended release 24 hr
(Toprol XL)
Review of Systems
-
Unable to obtain full review of systems at this time due to: Other (Patient is a difficult historian who has difficulty recalling history)
History Source: Patient and Coordinating Provider
All other systems: Negative unless noted
Constitutional: Weight Loss and Fatigue
EENT: No Symptoms
Respiratory: Trouble Breathing and Other
Cardiac: No Symptoms
Abdomen/GI: Other (Hiccups)
: Frequency
Musculoskeletal: Joint Pain (History of rheumatoid arthritis)
Neurological: No Symptoms
Endocrine: Polyuria
Hematologic/Lymphatic: No Symptoms
Physical Exam
Vital Signs
Temp Pulse Resp BP Pulse Ox
98.0 F 107 18 91/60 94
10/29/23 20:10 10/29/23 22:00 10/29/23 22:00 10/29/23 22:00 10/29/23 20:00
Lab Results
10/29/23 09:58
10/29/23 22:05
Troponin I 0.013 ng/ml 10/29/23 14:07
Dhl-F-Vvtcnwbjdgh Pept 458 pg/ml 10/29/23 09:58
Chest x-ray: No acute cardiopulmonary process
Twelve-lead EKG atrial flutter with 2-1 AV conduction at a rate of [address]-T wave changes.
Lower extremity Doppler negative for DVT
Physical Exam
General: Comfortable
HEENT: Normocephalic, Anicteric and Moist Mucous Membranes
Respiratory: Clear; Negative Wheezes, Crackles or Rhonchi
Cardiac: Irregular Rhythm (Tachycardic); Negative Murmur, Rub, Peripheral Edema or Calf Tenderness
GI: Soft, Non Tender, Non Distended and Normal Bowel Sounds
Musculoskeletal: No Edema
Neuro: AO x 3 and Nonfocal/Grossly Intact
Psych: Calm
Impression / Plan
-
Delivery Engineer: None
Impression:
-New rapid atrial flutter, unclear duration
-History of uncontrolled diabetes mellitus type 2 presenting with DKA/metabolic acidosis
-Acute renal insufficiency
-History of hypertension
-Altered mental status
-Hx of severe circumferential wall thickening of the stomach/duodenum with lymphadenopathy of right upper quadrant lymph nodes concerning for metastatic disease (seen on CT A/P from February 2023)
-History of COPD with prior tobacco dependence
-History of rheumatoid arthritis
Plan:
New, rapid atrial flutter of unclear duration
-Rate control strategy for now
-Currently n.p.o.
-Continue IV Cardizem with close monitoring of blood pressures
-As needed IV Lopressor if heart rate sustained above 150
-IV heparin drip
-Check 2D echocardiogram
-Check TSH
-Initial cardiac troponin undetectable with slight increase; patient has no chest pain but at present an unreliable historian. Trend troponin
DKA, uncontrolled diabetes mellitus type 2
-Hemoglobin A1c 14.1%
-Management per service vehicle operator and hospitalist
-Insulin drip
-IV fluids
-Would consult diabetic nurse practitioner Monday
Confusion, change in mental status
-Agree with plan for head CT
-Monitor closely with treatment for DKA
History of rheumatoid arthritis�noted
Abnormal CT abdomen pelvis February 2023 with severe circumferential irregular wall thickening of the distal stomach and proximal duodenum suspicious for gastric or duodenal adenocarcinoma. There is a moderate amount of right upper quadrant
lymphadenopathy suspicious for metastatic disease. CT abdomen also reports severe depth diverticular disease, hiatal hernia and enlarged prostate.
-Will defer to primary for further evaluation this hospitalization
Data Reviewed
-
EKG: Tracing Personally Visualized and interpreted
Radiology: Report Reviewed by me
CT Scan: Report Reviewed by me
Labs: Labs Reviewed by me
[2023-10-29 22:42] LABS: Troponin I 0.026 ng/ml
[2023-10-29 23:20] LABS: Glucose - Point of Care 170 mg/dl (70-99)
[2023-10-30] VITALS (32 sets, daily range): BP systolic 61–123; BP diastolic 29–99; PULSE 76; BMI 24.2
[2023-10-30] MEDS: D5/0.45%NACL IV (00:20)
[2023-10-30] MEDS: NSS IV (00:21)
[2023-10-30 00:28] LABS: Glucose - Point of Care 161 mg/dl (70-99)
--- NOTE | 2023-10-30 00:30 | PTCARENOTE ---
Physical assessment unchanged. Pt has been cooperative with care, but still forgetful and needs to be reoriented frequently. Pt attempted to get OOB and when asked if he was ok he said yes and then asked 'is this a modeling gig?' and thought the
front of the room was a stage. Pt remined that he was in the hospital and that it was 12:30 in the morning. Bed alarm reactivated. Pt remains on insulin drip per DKA protocol, Heparin drip, and Cardizem drip which is now at 15mg/hr. Still in
AFlutter but HR in 80s.
[2023-10-30 01:25] LABS: Glucose - Point of Care 190 mg/dl (70-99)
[2023-10-30 02:20] LABS: Glucose - Point of Care 176 mg/dl (70-99)
[2023-10-30 02:28] LABS: APTT 102.7 Sec (23.4-35.0)
[2023-10-30 02:52] LABS: Blood Urea Nitrogen 30 mg/dl (9-20); Calcium 9.7 mg/dl (8.4-10.2); Carbon Dioxide 21 mmol/L (22-30); Chloride 109 mmol/L (98-107); Estimated Creatinine Clearance 69 ml/min; Glucose 173 mg/dl (70-99); Potassium 3.6 mmol/L (3.5-5.1); Sodium 134 mmol/L (135-145); eGFR > 60.00
[2023-10-30 03:21] LABS: Glucose - Point of Care 183 mg/dl (70-99)
[2023-10-30 04:15] LABS: Glucose - Point of Care 188 mg/dl (70-99)
[2023-10-30] MEDS: D5/0.45%NACL 1000 IV ×2 (04:25→09:06)
--- NOTE | 2023-10-30 04:31 | PTCARENOTE ---
Physical assessment unchanged. Pt has been pleasant and cooperative with care. OOB with minimal x1 assist to BSC and was able to have a BM. CHG cloth bath done and draw sheet/pad changed. When OOB and actively trying to have a BM pt's HR went up to
160s-170s and sustained there for a few minutes, once pt was able to have a BM his HR went down to 130s-140s, once back in bed HR was back in 80s (A Flutter). Remains on Cardizem at 15mg/hr, Heparin at 1100 units/hr, Insulin per DKA protocol, has
been at 2 units/hr for several hours. Call reardon and personal items within reach. Bed alarm activated.
[2023-10-30 05:15] LABS: Glucose - Point of Care 184 mg/dl (70-99)
[2023-10-30] MEDS: NSS 1000 IV (05:18)
--- NOTE | 2023-10-30 05:40 | PTCARENOTE ---
At 0500, pt's BP 76/52 with MAP of 59. Went into pt's room to check on him/do his blood sugar which woke him up. Cuff adjusted and BP recycled and was lower. Rechecked at 0510 and was in 60s systolic. Pt awake and talking but does admit to feeling
dizzy. Cardizem had been at 15mg/hr, initially with first low BP drip turned down to 10mg/hr but with subsequent low BP, Cardizem drip turned off. Pt's rhythm changed from AFlutter in the 80s to AFib 60s and at times going down to the 50s. Discussed
with Little MONTIEL, 1 L NS bolus ordered, started at 0518.
[2023-10-30 06:17] LABS: Glucose - Point of Care 157 mg/dl (70-99)
[2023-10-30 06:21] LABS: % Basophils 0.8 % (0-2); % Immature Granulocytes 0.5 % (0-0.5); % Lymphocytes 31.6 % (20.5-51.1); % Monocytes 7.6 % (1.7-9.3); % Neutrophils 57.5 % (42.2-75.2); Absolute Basophils 0.1 10^3/uL (0-0.2); Absolute Eosinophils 0.3 10^3/uL (0-0.7); Absolute Immature Granulocytes 0.1 10^3/uL (0-0.05); Absolute Lymphocytes 4.9 10^3/uL (1.2-3.4); Absolute Monocytes 1.2 10^3/uL (0.1-0.6); Absolute Neutrophils 8.8 10^3/uL (1.4-6.5); Hematocrit 39.3 % (39.0-52.0); Mean Corp Hgb Conc. 32.3 g/dL (33.0-37.0); Mean Corpuscular Hgb 24.3 pg (27.0-31.0); Mean Corpuscular Volume 75.1 fL (80.0-94.0); Mean Platelet Volume 10.9 fL (7.4-10.4); Nucleated Red Blood Cells % 0 % (-); Platelet Count 274 10^3/uL (130-400); Red Blood Cell Count 5.23 10^6/uL (4.70-6.10); Red Cell Dist. Width 18.7 % (11.5-14.5); White Blood Cell Count 15.3 10^3/uL (4.8-10.8)
[2023-10-30 06:23] LABS: Hemoglobin 12.7 g/dL (13.0-18.0)
[2023-10-30 06:32] LABS: APTT 84.9 Sec (23.4-35.0)
[2023-10-30 06:43] LABS: Blood Urea Nitrogen 29 mg/dl (9-20); Calcium 9.3 mg/dl (8.4-10.2); Carbon Dioxide 24 mmol/L (22-30); Chloride 106 mmol/L (98-107); Estimated Creatinine Clearance 63 ml/min; Glucose 166 mg/dl (70-99); Potassium 3.3 mmol/L (3.5-5.1); Sodium 136 mmol/L (135-145); eGFR > 60.00
[2023-10-30 06:46] LABS: Troponin I 0.027 ng/ml
--- NOTE | 2023-10-30 07:08 | W.PN.INTV ---
Addendum entered and electronically signed by Jigna Childress DO 10/30/23 14:57:
Doing well, off insulin gtt
We will transfer to tele and sign off upon transfer
Call with questions
Original Note:
Today's Communication / Plan
Recommendations
Off cardene gtt
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
Diet advanced, tolerating
Encouraged OOB/PT/OT
Further Afib management per cards team
Outpatient sleep eval recommended
Can transfer to tele otherwise
Assessment
-
73-year-old male with a past medical history of COPD, rheumatoid arthritis, iron deficiency anemia, GERD and hypertension who presents with shortness of breath. In the ER patient was tachycardic to 105, hypotensive with BP 95/52, and saturating 96%
on room air. He was found to be in atrial flutter. Blood gas showed a metabolic acidosis with pH 7.35, pCO2 30. Serum sodium 125, potassium 5.6, creatinine 1.8, glucose 652, A1c 14.1, white blood cell 16.2, Hb 16 and platelets 483. Beta
hydroxybutyrate level was >6. He had 2+ urinary ketones. IV fluids were started with 1.5 L of NS 0.9%. He was given regular insulin 7 units, metoprolol, 10 mg Cardizem. Additional rate control was still needed hence Cardizem drip was started.
Heparin drip also begun. Due to hyperglycemia, insulin drip started. Patient transferred to the ICU for admission and critical care services consulted for additional management/recommendations.
Impression:
#Atrial flutter with rapid ventricular rate
#DM type II c/b DKA
#Pseudohyponatremia
#Acute kidney injury
#Metabolic acidosis due to above (RUDY and DKA)
#Leukocytosis
#AMS and has been 'dropping' things at home
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
Hx of severe circumferential wall thickening of the stomach/duodenum with lymphadenopathy of RUQ lymph nodes
concerning for metastatic disease (seen on CT A/P from February 2023)
GERD
hypertension
iron deficiency anemia
rheumatoid arthritis
seasonal allergies
Plan:
DKA, admitting BS elevated, initial AG 24
Started on insulin drip, can wean following protocol, start D5 IVFs
Consult diabetic nurse for insulin recommendations
Can restart diet once able to bridge
H/o poorly controlled diabetes, hopeful transition to home meds
Hba1c 14.1 (10/29/23), increased from 6.2 (2018)
Diet transition following DKA protocol
GI ppx as indicated
Would also recommend GI consult as his CT A/P from February 2023 showed severe circumferential wall thickening of his gastric antrum and 1st duodenum, and LN of RUQ, c/f malignancy
Outpatient FU needed
Check a non-urgent CT head (can be done tomorrow AM) due to him dropping things at home and confusion
New onset Afib, IV heparin
Cards following
Hemodynamically stable, not requiring pressors.
H/o cardiac disease--HTN
No prior ECHO for review
Weaned off cardene gtt
Recommend sleep follow as outpatient given Afib diagnosis
Oxygen needs: Stable on RA
No prior h/o pulmonary disease
CXR without acute process
Creat at baseline, follow UO
Acid/base status: AGMA 2/2 DKA, follow until AG <12
No signs/symptoms suspicious for infectious etiology at this time.
Will observe off antibiotics for now.
Follow fever trend, WBC count.
DVT ppx SCDs
Trend WBC; UA is clear and CXR shows no evidence of PNA
Hold off on Abx for now
Observe off
Diagnostic Data
CXR 10-29-2023: No acute cardiopulmonary process.
CT Abd/Pelvis with IV and PO Contrast :
1. � Severe circumferential irregular wall thickening in the distal stomach and proximal duodenum suspicious for GASTRIC or DUODENAL ADENOCARCINOMA. Lymphoma is an alternative diagnostic possibility. Peptic ulcer disease is a less likely diagnostic
consideration given the absence of surrounding inflammation and fluid.
2. � Moderate amount of RIGHT UPPER QUADRANT LYMPHADENOPATHY very suspicious for RADHA METASTATIC DISEASE. Reactive lymphadenopathy is considered less likely.
3. � Small cysts and possibly small metastases in the liver.
4. � Severe diverticular disease in the SIGMOID COLON with MILD ACUTE DIVERTICULITIS.
5. � Small hiatal hernia.
6. � Moderately enlarged prostate gland.
7. � Small bilateral inguinal hernias containing urinary bladder.
8. � Severe discogenic degenerative disease and facet joint arthrosis in the lumbar spine.
-----
Critical Care time 35 mins -- The patient is admitted for acute critical illness for the treatment of vital organ failure and/or prevention of further life-threatening conditions. Total care includes time spent in review of history, physical exam,
medications, hemodynamic/ventilator parameters, laboratory data, imaging and discussion with house staff, pharmacy, respiratory therapy, ip network architect, and nursing.
Subjective Dataa
Subjective Data
Date of Service:
Date of Service: October 30, 2023
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
Subjective:
no acute events ON
weaning off drips
Objective Data
Data Reviewed
Vital Signs / I&O / Oxygen:
Vital Signs
Temp Pulse Resp BP Pulse Ox
97.7 F 82 13 100/66 96
10/30/23 04:00 10/30/23 04:02 10/30/23 04:02 10/30/23 04:02 10/30/23 04:02
Intake and Output
10/29/23 10/30/23 10/31/23
06:59 06:59 06:59
Intake Total 3753.0 / 3753.0
Output Total 800 / 800
Balance 2953.0 / 2953.0
SaO2 96
Physical Exam
General: Comfortable, Poor Appetite and Other (NAD)
HEENT: Normocephalic, Anicteric and Moist Mucous Membranes
Cardiovascular: S1-S2 and Regular Rhythm
Respiratory: Clear and Non-Labored Respirations
GI: Soft, Non Distended and Non Tender
Neurology: Awake, Alert, Oriented, AO x 3 and No Motor Deficits
Skin: Warm, Dry and Good Color
Labs/Micro/Reports
Lab Data
10/30/23 05:58
Laboratory Results
10/29/23 10/29/23 10/30/23
11:34 18:04 02:07
APTT 30.5 138.0 H 102.7 H
10/30/23
05:59
APTT 84.9 H
[2023-10-30 07:13] LABS: TSH Reflex To Free T4 0.54 uIU/ml (0.47-4.68)
[2023-10-30 07:23] LABS: Glucose - Point of Care 182 mg/dl (70-99)
[2023-10-30 08:18] LABS: Glucose - Point of Care 153 mg/dl (70-99)
[2023-10-30] MEDS: HEPARIN 25000 UNITS/250 ML IV (08:37)
[2023-10-30] MEDS: KCL 270 MEQ IV (09:07)
--- NOTE | 2023-10-30 09:09 | PN.DE.MGMTRT ---
Insulin Management
- -
10/30/2023: Diabetes Management Consult
73-year-old male admitted with DKA. PMH includes: HTN, COPD, rheumatoid arthritis, iron deficiency anemia, GERD and T2DM.
Pt p/w SOB, noted for glucose of 899, Beta hydroxybutyrate level was >6, A1C of 14.1%, Cr of 1.8 with a GAP of 20 on admission.
He was given regular insulin 7 units and started on an insulin gtt. He remains on continuous insulin infusion, glucose level of 153 to 190, requiring 2 units of insulin/hr. GAP has closed and pt is A/O, states he is hungry and asking for lunch.
Pt reports that he was aware of pre-diabetes dx many years ago. Says he has been eating a lot of popsicles and thinks that's why he is now diabetic.
He has been ordered 1800 bharath diet.
Will transition off insulin gtt. Give Lantus 15 units NOW.Turn drip off @ 11:00 AM.
Start Lantus 15 units @, check 3 AM blood sugar, NovoLog 4 units AC with corrective insulin.
pt was provided with instructions for monitor and insulin administration at home.
Diabetes History
- -
Type of Diabetes: 2 requiring insulin
Pre-Admission Diabetes Regimen
10/29/23 10/29/23 10/29/23
09:58 14:07 18:04
Creatinine 1.8 H 1.4 H 1.1
10/29/23 10/30/23 10/30/23
22:05 02:07 05:58
Creatinine 1.0 1.0 1.1
10/30/23
10:00
Creatinine Cancelled
Lab Results
Hemoglobin A1c 14.1 % (4.0-5.6) H 10/29/23 09:58
Insulin Pump Settings
IP Diabetes Regimen
10/29/23 10/29/23 10/29/23
09:58 12:18 14:05
Glucose 899 H* 652 H*
POC Glucose 442 H
10/29/23 10/29/23 10/29/23
14:07 16:07 17:02
Glucose 481 H*
POC Glucose 363 H 306 H
10/29/23 10/29/23 10/29/23
18:03 18:04 19:05
Glucose 277 H
POC Glucose 231 H 246 H
10/29/23 10/29/23 10/29/23
20:11 21:07 22:04
Glucose
POC Glucose 259 H 222 H 191 H
10/29/23 10/29/23 10/30/23
22:05 23:08 00:16
Glucose 194 H
POC Glucose 170 H 161 H
10/30/23 10/30/23 10/30/23
01:14 02:07 02:08
Glucose 173 H
POC Glucose 190 H 176 H
10/30/23 10/30/23 10/30/23
03:09 04:04 05:04
Glucose
POC Glucose 183 H 188 H 184 H
10/30/23 10/30/23 10/30/23
05:58 06:01 07:08
Glucose 166 H
POC Glucose 157 H 182 H
10/30/23 10/30/23
08:08 10:00
Glucose Cancelled
POC Glucose 153 H
Patient Education
[2023-10-30 09:22] LABS: Glucose - Point of Care 156 mg/dl (70-99)
[2023-10-30] MEDS: LANTUS 0.149999999999999994 UNITS SC (10:05)
[2023-10-30 10:15] LABS: Glucose - Point of Care 203 mg/dl (70-99)
--- NOTE | 2023-10-30 11:20 | W.PN.HOSP.TC ---
Today's Communication/Plan
-
Monitor vital signs and see plan
Transition to subcu insulin
Now converted to normal sinus rhythm
Echo today
Heparin drip
possible transfer out of ICU later today if symptoms continues to improve
Assessment / Plan
Assessment / Plan
General: Well Nourished and No Apparent Distress
HEENT: Anicteric and Moist mucous membranes
Respiratory: Clear and Non Labored Respirations; No Wheezes
Cardiac: regular Rhythm,normal s1 and s2
GI: Soft, Non Tender, Non Distended and Normal Bowel Sounds
Genito-urinary: No Cruz
Musculoskeletal: No Edema
Neuro: Awake, Alert, Oriented and AO x 3
Psych: Calm
Shortness of breath likely secondary atrial flutter with RVR; unknown chronicity
cw heparin gtt
off dilt gtt; concverted to NSR this morning
echo pending
trop mildly elevated likely secondary to non ischemic myocardial injury
cardiology following
denies chest pain
CXR without PNA
venous doppler LE without DVT
consider CT chest once creatinine improves and if suspicion is high; denies chest pain at this time
monitor leukocytosis
TSH wnl
DKA
new onset DM; A1c 14.1
was on insulin gtt; transition to subcu insulin now the gap closed
Diabetic diet
Diabetes nurse practitioner consulted
Anion gap 24 on admission
BS 899 on admission
check bcx; Ua without UTI; CXR with no PNA
Hypokalemia
replete
RUDY suspect 2/2 DKA
resolved
bladder scan
Ua without UTI
Pseudohyponatremia on admission
Corrected sodium 138
Monitor
Hypercalcemia
resolved
History of hypertension
Hold lisinopril and metoprolol at this time
Currently blood pressure low, monitor with fluids; midodrine if needed
History of gastric and duodenal thickening concerning for malignancy
Patient refused endoscopy in the past.� Patient to follow-up outpatient
History of iron deficiency anemia
History of diverticulosis with diverticulitis
hx of rheumatoid arthritis
DVTppx
heparin
Full code
I spent a total of 54 minutes with the patient or on the floor. More than 50% of this time involved counseling and coordination of care.
Anticipated Discharge: > 48 hours
Subjective/Interval History
-
Date of Service: October 30, 2023
Denies chest pain
Objective Data
-
Labs:
Laboratory Results
10/30/23 10/30/23 10/30/23
02:07 05:58 05:59
WBC 15.3 H
Hgb 12.7 L D
Hct 39.3
Plt Count 274 D
APTT 102.7 H 84.9 H
Sodium 134 L 136
Potassium 3.6 3.3 L
Chloride 109 H 106
Carbon Dioxide 21 L 24
BUN 30 H 29 H
Creatinine 1.0 1.1
Glucose 173 H 166 H
Calcium 9.7 9.3
10/30/23
10:00
WBC
Hgb
Hct
Plt Count
APTT
Sodium Cancelled
Potassium Cancelled
Chloride Cancelled
Carbon Dioxide Cancelled
BUN Cancelled
Creatinine Cancelled
Glucose Cancelled
Calcium Cancelled
Vital Signs:
Vital Signs
Temp Pulse Resp BP Pulse Ox
98.6 F 69 18 114/55 95
10/30/23 11:19 10/30/23 11:00 10/30/23 11:00 10/30/23 11:00 10/30/23 11:00
I&O
10/29/23 10/30/23 10/31/23
06:59 06:59 06:59
Intake Total 3866.0 / 3979.0 768.5 / 768.5
Output Total 800 / 800 275 / 275
Balance 3066.0 / 3179.0 493.5 / 493.5
--- NOTE | 2023-10-30 11:37 | W.PN.CARDCBS ---
Today's Communication / Plan
-
-Converted to sinus
-Cont to monitor HR off IV Cardizem.
-Cont IV heparin with consideration for conversion to oral anticoagulation
-2D echocardiogram pending
-TSH and trop unremarkable.
Impression / Plan
-
.
Coremaker Apprentice: None
Impression:
-New rapid atrial flutter, unclear duration, spontaneous conversion to sinus
-History of uncontrolled diabetes mellitus type 2 presenting with DKA/metabolic acidosis
-Acute renal insufficiency
-History of hypertension
-Altered mental status
-Hx of severe circumferential wall thickening of the stomach/duodenum with lymphadenopathy of right upper quadrant lymph nodes concerning for metastatic disease (seen on CT A/P from February 2023)
-History of COPD with prior tobacco dependence
-History of rheumatoid arthritis
Plan:
New, rapid atrial flutter of unclear duration
-Converted to sinus
-Cont to monitor HR off IV Cardizem.
-Cont IV heparin with consideration for conversion to oral anticoagulation
-2D echocardiogram pending
-TSH and trop unremarkable.
DKA, uncontrolled diabetes mellitus type 2
-Hemoglobin A1c 14.1%
-Management per buck presser and hospitalist
-Insulin/ IVF as per primary service.
Confusion, change in mental status, improved with tx of DKA.
Abnormal CT abdomen pelvis February 2023 with severe circumferential irregular wall thickening of the distal stomach and proximal duodenum suspicious for gastric or duodenal adenocarcinoma. There is a moderate amount of right upper quadrant
lymphadenopathy suspicious for metastatic disease. CT abdomen also reports severe depth diverticular disease, hiatal hernia and enlarged prostate.
-Will defer to primary for further evaluation this hospitalization
Reviewed with nursing.
Progress Note - Coremaker Apprentice
Subjective
Date of Service: October 30, 2023
Pt seen and examined. No complaints. No chest pain or shortness of breath.
Objective
Labs:
10/30/23 05:58
10/30/23 10:00
Labs
Hgb 12.7 g/dL (13.0-18.0) L D 10/30/23 05:58
Hct 39.3 % (39.0-52.0) 10/30/23 05:58
Plt Count 274 10^3/uL (130-400) D 10/30/23 05:58
APTT 84.9 Sec (23.4-35.0) H 10/30/23 05:59
Sodium Cancelled 10/30/23 10:00
Potassium Cancelled 10/30/23 10:00
BUN Cancelled 10/30/23 10:00
Creatinine Cancelled 10/30/23 10:00
Glucose Cancelled 10/30/23 10:00
Troponins
10/29/23 10/29/23 10/29/23
09:58 14:07 22:05
Troponin I < 0.012 0.013 0.026 D
10/30/23
05:58
Troponin I 0.027
Vital Signs and I&O:
Vital Signs
Temp Pulse Resp BP Pulse Ox
98.6 F 69 18 114/55 95
10/30/23 11:19 10/30/23 11:00 10/30/23 11:00 10/30/23 11:00 10/30/23 11:00
Vital Signs
Temp Pulse Resp BP Pulse Ox
98.6 F 69 18 114/55 95
10/30/23 11:19 10/30/23 11:00 10/30/23 11:00 10/30/23 11:00 10/30/23 11:00
Intake & Output
10/28/23 10/29/23 10/30/23 10/31/23
06:59 06:59 06:59 06:59
Intake Total 3866.0 / 3979.0 768.5 / 768.5
Output Total 800 / 800 275 / 275
Balance 3066.0 / 3179.0 493.5 / 493.5
Physical Exam
Physical Exam
General: No acute distress, AAOX3
Neck: Negative JVD
Heart: Regular, Negative S3 positive S1/S2, Negative S4, No murmur
Lungs: CTA b/l, negative wheezes/rales/rhonchi
Abd: Positive BS, NT/ND, neg rebound/rigidity/guarding
Ext: Negative cyanosis/clubbing/edema
Neuro: nonfocal
--- NOTE | 2023-10-30 11:40 | PTCARENOTE ---
Patient received with assessment as noted. Continues awake and alert, still slightly forgetful and impulsive but easily reorients. Affect slightly flat but cooperative. OOB to void and stands without difficulty. Initially in a controlled A-fib with
B/P's 85-95/50's. 1000 ml NSS bolus given on condemnation engineer. At 0840 patient noted to be in NSR. EKG done. B/P's now 110-120/50's. Heparin gtt continues with therapeutic PTT. Lungs CTA. Sao2 96% on room air. Received on an Insulin gtt with hourly
Accuchecks. BS maintained 150's-203. Gap maintained 8-9 for the last 3 blood draws. Diabetic management aware, initial dose of Lantus given at 1005 and Insulin gtt and IVF's d/c'd at 1100. Passed bedside swallow eval. Diet ordered. Seen by Diabetes
management for teaching. Lungs CTA. Sao2 96% on room air. No bowel movement today. Voiding ad juan. AM potassium 3.3 and 40 mEq K-rider infusing. Patient currently in bed with call reardon and telephone in reach.
--- NOTE | 2023-10-30 11:50 | CARDSERVLU ---
Echocardiogram with [facility] completed after protocol screening completed. Allergies verified.
Patent IV site: _R wrist____
IV site flushed with 0.9% NaCl pre and post administration.
Diluted bolus method utilized to enhance visualization of ventricular burnham.
Total volume given: _2.5___ mL
Patient tolerated all procedures well without complications.
[2023-10-30 12:15] LABS: Glucose - Point of Care 159 mg/dl (70-99)
[2023-10-30] MEDS: NOVOLOG FLEXPEN-MODERATE RESISTANCE 1 UNITS SC (12:53)
[2023-10-30] MEDS: NOVOLOG FLEXPEN 4 UNITS SC ×2 (12:53→17:50)
--- NOTE | 2023-10-30 15:47 | CM ---
CM following re: discharge planning.
Discussed in Rounds, reviewed pt's chart, met with pt.
Pt is a 73 year old male, admitted with primary dx of A-Fib.
Pt reports he lives with spouse in an apartment, has supportive son who is a public relations representative. 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 No DME, VN or SNF history.
PCP: Zarina Chinchilla
Pharmacy: [facility]
D/C plan: home with anticipated no needs. Family to transport at discharge.
CM will follow with discharge plan updates as hospitalization progresses
[2023-10-30 17:10] LABS: Glucose - Point of Care 274 mg/dl (70-99)
[2023-10-30] MEDS: NOVOLOG FLEXPEN-MODERATE RESISTANCE 5 UNITS SC (17:51)
--- NOTE | 2023-10-30 20:15 | PTCARENOTE ---
assessment nurse practitioner, pt denies pain, slow to answer when first woke up but then fully oriented and appropriate. SR HR 70s, RA Sat 94%, ax1 to stand/use urinal at bedside, mouth care. POC discussed. call reardon w/patient.
[2023-10-30 21:55] LABS: Glucose - Point of Care 284 mg/dl (70-99)
[2023-10-30] MEDS: NOVOLOG FLEXPEN 6 UNITS SC (22:01)
[2023-10-31] VITALS (12 sets, daily range): BP systolic 101–129; BP diastolic 54–88; PULSE 91; BMI 25.7
[2023-10-31] MEDS: HEPARIN 25000 UNITS/250 ML IV (05:08)
[2023-10-31 05:22] LABS: % Basophils 0.9 % (0-2); % Eosinophils 5.2 % (0-6); % Immature Granulocytes 0.4 % (0-0.5); % Lymphocytes 44.7 % (20.5-51.1); % Monocytes 7.1 % (1.7-9.3); % Neutrophils 41.7 % (42.2-75.2); Absolute Basophils 0.1 10^3/uL (0-0.2); Absolute Eosinophils 0.5 10^3/uL (0-0.7); Absolute Monocytes 0.6 10^3/uL (0.1-0.6); Absolute Neutrophils 3.8 10^3/uL (1.4-6.5); Hematocrit 34.3 % (39.0-52.0); Mean Corp Hgb Conc. 32.1 g/dL (33.0-37.0); Mean Corpuscular Hgb 24.1 pg (27.0-31.0); Mean Corpuscular Volume 75.1 fL (80.0-94.0); Mean Platelet Volume 10.9 fL (7.4-10.4); Nucleated Red Blood Cells % 0 % (-); Platelet Count 278 10^3/uL (130-400); Red Blood Cell Count 4.57 10^6/uL (4.70-6.10); Red Cell Dist. Width 18.6 % (11.5-14.5)
[2023-10-31 05:29] LABS: APTT 73.4 Sec (23.4-35.0)
[2023-10-31 05:41] LABS: Blood Urea Nitrogen 17 mg/dl (9-20); Calcium 8.7 mg/dl (8.4-10.2); Carbon Dioxide 22 mmol/L (22-30); Chloride 107 mmol/L (98-107); Estimated Creatinine Clearance 77 ml/min; Glucose 185 mg/dl (70-99); Sodium 132 mmol/L (135-145); eGFR > 60.00
[2023-10-31 07:38] LABS: Glucose - Point of Care 231 mg/dl (70-99)
--- NOTE | 2023-10-31 08:05 | W.PN.HOSP.TC ---
Today's Communication/Plan
-
see bold
Assessment / Plan
Assessment / Plan
Gen: NAD, AAOx3.
Eyes: EOMI, PERRLA, no scleral icterus.
Neck: supple.
CV: RRR, +S1/S2, no m/r/g.
Resp: CTAB, no rales, wheezes, or rhonchi.
Abd: +BS, soft, NT, ND
Skin: No rashes.
Neuro: CN 2-12 intact, non-focal.
Psych: Normal mood and affect.
Echo: Normal left ventricular size, wall thickness and systolic function.� Abnormal�septal motion.� No RWMA. EF 48%. Normal diastolic function. Normal left and right atrial sizes. Trace mitral regurgitation.
CXR: No acute cardiopulmonary process.
B/L LE U/S: No evidence of deep venous thrombosis bilaterally.
Atrial flutter with RVR:
-Presented with shortness of breath that was likely secondary to atrial flutter with RVR, unknown chronicity
-currently on heparin gtt, transition to Eliquis today
-was on Cardizem drip, converted to NSR 10/30/23AM
-Echo above
-minimal trop elevation secondary to nonischemic myocardial injury
-TSH normal
-cardiology following
DKA:
-new onset DM2
-a1c 14.1%
-Initially was on insulin gtt, AG closed (was 24 on admission) now transitioned to Lantus/premeal Novolog
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
RUDY:
-due to prerenal azotemia due to osmotic diuresis from DKA
-resolved with IVFs
Other problems:
Hypokalemia, resolved
Hyponatremia, mild
Hypercalcemia, resolved
Essential HTN: Home Lisinopril/BB on hold
h/o gastric and duodenal thickening concerning for malignancy: refused endoscopy in the past.� Patient to follow-up outpatient.
h/o iron deficiency anemia: Trend Hb which is stable considering dilution
RA
FULL/heparin
Anticipated Discharge: Within 24 hours
Subjective/Interval History
-
Date of Service: October 31, 2023
Denies CP/SOB. c/o some 'stomach pain' and mild L elbow pain due to his RA.
Objective Data
-
Labs:
Laboratory Results
10/31/23
05:01
WBC 9.0
Hgb 11.0 L
Hct 34.3 L
Plt Count 278
APTT 73.4 H
Sodium 132 L
Potassium 4.0
Chloride 107
Carbon Dioxide 22
BUN 17
Creatinine 0.9
Glucose 185 H
Calcium 8.7
Vital Signs:
Vital Signs
Temp Pulse Resp BP Pulse Ox
98.4 F 63 16 101/54 95
10/31/23 03:53 10/31/23 05:00 10/31/23 05:00 10/31/23 04:00 10/31/23 04:53
I&O
10/30/23 10/31/23 11/01/23
06:59 06:59 06:59
Intake Total 3866.0 / 3979.0 1794.0 / 1794.0
Output Total 800 / 800 1775 / 1775
Balance 3066.0 / 3179.0 19.0 / 19.0
[2023-10-31] MEDS: NOVOLOG FLEXPEN 4 UNITS SC (08:09)
[2023-10-31] MEDS: NOVOLOG FLEXPEN-MODERATE RESISTANCE 3 UNITS SC (08:10)
--- NOTE | 2023-10-31 08:28 | PN.DE.MGMTRT ---
Insulin Management
- -
10/30/2023: Diabetes Management Consult
73-year-old male admitted with DKA. PMH includes: HTN, COPD, rheumatoid arthritis, iron deficiency anemia, GERD and T2DM.
Pt p/w SOB, noted for glucose of 899, Beta hydroxybutyrate level was >6, A1C of 14.1%, Cr of 1.8 with a GAP of 20 on admission.
He was given regular insulin 7 units and started on an insulin gtt. He remains on continuous insulin infusion, glucose level of 153 to 190, requiring 2 units of insulin/hr. GAP has closed and pt is A/O, states he is hungry and asking for lunch.
Pt reports that he was aware of pre-diabetes dx many years ago. Says he has been eating a lot of popsicles and thinks that's why he is now diabetic.
He has been ordered 1800 bharath diet.
Will transition off insulin gtt. Give Lantus 15 units NOW.Turn drip off @ 11:00 AM.
Start Lantus 15 units @HS, check 3 AM blood sugar, NovoLog 4 units AC with corrective insulin.
pt was provided with instructions for monitor and insulin administration at home.
10/31/2023 Diabetes Management Follow up
Patient trnasitioned from glycemic protocol yesterday, received lantus 15 units then drip off 1 hour later. Received 4 units novolog AC, required additional 5 units with dinner. HS glucose 284, received additional 6 units novolog.
Will start 20 units lantus daily with novolog 8 units ac with moderate corrective, will follow for further needed adjustments.
Diabetes History
- -
Type of Diabetes: 2
Pre-Admission Diabetes Regimen
10/31/23
05:01
Creatinine 0.9
Lab Results
Hemoglobin A1c 14.1 % (4.0-5.6) H 10/29/23 09:58
Insulin Pump Settings
IP Diabetes Regimen
10/30/23 10/30/23 10/30/23
09:10 10:04 12:04
Glucose
POC Glucose 156 H 203 H 159 H
10/30/23 10/30/23 10/31/23
16:58 21:44 05:01
Glucose 185 H
POC Glucose 274 H 284 H
10/31/23
07:26
Glucose
POC Glucose 231 H
Meal type: Dinner
Meal type: Lunch
Amount consumed: 40%
Amount consumed: 60%
Patient Education
--- NOTE | 2023-10-31 08:29 | W.PN.CARDCBS ---
Today's Communication / Plan
-
Transition to Eliquis
Impression / Plan
-
.
Pastoral Worker: None
Impression:
-New rapid atrial flutter, unclear duration, spontaneous conversion to sinus
-History of uncontrolled diabetes mellitus type 2 presenting with DKA/metabolic acidosis
-Acute renal insufficiency
-History of hypertension
-Altered mental status
-Hx of severe circumferential wall thickening of the stomach/duodenum with lymphadenopathy of right upper quadrant lymph nodes concerning for metastatic disease (seen on CT A/P from February 2023)
-History of COPD with prior tobacco dependence
-History of rheumatoid arthritis
Echo October 30 2023: Normal left ventricular size, wall thickness and systolic function.� Abnormal�septal motion.� No regional wall motion abnormalities are seen. EF 48% by volumetric assessment and is consistent with visual
�assessment of 45 to 50%. Normal diastolic function.�Normal left and right atrial sizes.�Trace mitral regurgitation.�There is no prior echocardiogram for comparison
Plan:
New, rapid atrial flutter of unclear duration
-Converted to sinus
-Transition to Eliquis. Have CM eval cost.
-2D echocardiogram EF 45-50%, consider outpt ischemic eval.
-TSH and trop unremarkable.
DKA, uncontrolled diabetes mellitus type 2
-Hemoglobin A1c 14.1%
-Management per cathode ray tube assembler and hospitalist
-Insulin/ IVF as per primary service.
Confusion, change in mental status, improved with tx of DKA.
Abnormal CT abdomen pelvis February 2023 with severe circumferential irregular wall thickening of the distal stomach and proximal duodenum suspicious for gastric or duodenal adenocarcinoma. There is a moderate amount of right upper quadrant
lymphadenopathy suspicious for metastatic disease. CT abdomen also reports severe depth diverticular disease, hiatal hernia and enlarged prostate.
-Will defer to primary for further evaluation this hospitalization
Reviewed with nursing.
Progress Note - Pastoral Worker
Subjective
Date of Service: October 31, 2023
Patient seen and examined. No chest pain
Objective
Labs:
10/31/23 05:01
10/31/23 05:01
Labs
Hgb 11.0 g/dL (13.0-18.0) L 10/31/23 05:01
Hct 34.3 % (39.0-52.0) L 10/31/23 05:01
Plt Count 278 10^3/uL (130-400) 10/31/23 05:01
APTT 73.4 Sec (23.4-35.0) H 10/31/23 05:01
Sodium 132 mmol/L (135-145) L 10/31/23 05:01
Potassium 4.0 mmol/L (3.5-5.1) 10/31/23 05:01
BUN 17 mg/dl (9-20) 10/31/23 05:01
Creatinine 0.9 mg/dL (0.7-1.3) 10/31/23 05:01
Glucose 185 mg/dl (70-99) H 10/31/23 05:01
Troponins
10/29/23 10/29/23 10/29/23
09:58 14:07 22:05
Troponin I < 0.012 0.013 0.026 D
10/30/23
05:58
Troponin I 0.027
Vital Signs and I&O:
Vital Signs
Temp Pulse Resp BP Pulse Ox
98.4 F 63 16 101/54 95
10/31/23 03:53 10/31/23 05:00 10/31/23 05:00 10/31/23 04:00 10/31/23 04:53
Vital Signs
Temp Pulse Resp BP Pulse Ox
98.4 F 63 16 101/54 95
10/31/23 03:53 10/31/23 05:00 10/31/23 05:00 10/31/23 04:00 10/31/23 04:53
Intake & Output
10/29/23 10/30/23 10/31/23 11/01/23
06:59 06:59 06:59 06:59
Intake Total 3866.0 / 3979.0 1794.0 / 1794.0
Output Total 800 / 800 1775 / 1775
Balance 3066.0 / 3179.0 19.0 / 19.0
Physical Exam
Physical Exam
General: No acute distress, AAOX3
Neck: Negative JVD
Heart: Regular, Negative S3 positive S1/S2, Negative S4, No murmur
Lungs: CTA b/l, negative wheezes/rales/rhonchi
Abd: Positive BS, NT/ND, neg rebound/rigidity/guarding
Ext: Negative cyanosis/clubbing/edema
Neuro: nonfocal
[2023-10-31] MEDS: LANTUS 0.200000000000000011 UNITS SC (09:09)
[2023-10-31] MEDS: ELIQUIS 5 MG PO ×2 (10:56→20:09)
[2023-10-31 12:10] LABS: Glucose - Point of Care 327 mg/dl (70-99)
[2023-10-31] MEDS: NOVOLOG FLEXPEN-MODERATE RESISTANCE 7 UNITS SC (12:47)
[2023-10-31] MEDS: NOVOLOG FLEXPEN 8 UNITS SC ×2 (12:48→17:41)
--- NOTE | 2023-10-31 13:53 | PTCARENOTE ---
Patient received in AM with assessment as noted. Continues alert and oriented with a pleasant affect. Less forgetful than yesterday. OOB to chair at 1200 and transfers with minimal assist. NSR on monitor. Afebrile. B/P's stable. Heparin gtt d/c'd
and Eliquis started as per orders. Lungs CTA. Sao2 94% on room air. Appetite fair. Continues on moderate dose SSI with additional standing AC coverage. Lantus given as per orders. Seen by Diabetic management team. No bowel movement today. Voiding ad
juan. For transfer to Telemetry pending bed availability. Patient currently OOB to chair with call reardon and telephone in reach.
--- NOTE | 2023-10-31 15:36 | CM ---
CM follwoing re: discharge planning.
Reviewed pt's chart, met with pt.
CM checked the [facility] for Eliquis 5mg BID and it will cost to the pt $47.00 for 30 days supply. Pt reports it will be affordable. CM will provide free 30 days coupon for Eliquis.
D/C plan: home with anticipated no needs. Spouse to transport at discharge.
CM will follow with discharge plan updates as hospitalization progresses
[2023-10-31] MEDS: NOVOLOG FLEXPEN-MODERATE RESISTANCE 1 UNITS SC (17:40)
[2023-10-31 17:49] LABS: Glucose - Point of Care 176 mg/dl (70-99)
--- NOTE | 2023-10-31 20:15 | PTCARENOTE ---
director emergency services, pt aaox3, SR HR 70-80s, tylenol given for L elbow 'arthritis pain', IV x 3 patent, no gtt infusing, pt ax1 to bathroom- steady. new linen, new gown, mouth care done. POC discussed, call reardon with patient.
[2023-10-31] MEDS: TYLENOL 650 MG PO (20:17)
[2023-10-31 21:29] LABS: Glucose - Point of Care 88 mg/dl (70-99)
[2023-10-31] MEDS: LOPRESSOR 5 MG IV (22:18)
[2023-10-31] MEDS: MAGNESIUM SULFATE 100 IV (23:28)
[2023-10-31] MEDS: CARDIZEM 125 IV (23:28)
--- NOTE | 2023-10-31 23:34 | PTCARENOTE ---
pt HR to 140s at 2200, pt denies CP, BP unchanged, BDoughertyNP aware, HR remained 130-150s- 5mg IV lopressor at 2218; at 2245 pt c/o of 5/10 L arm and L jaw pain, no CP, PAPER SPOOLER aware. EKG done (AFib), BMP/Mg/Trop sent. cardizem gtt started at 2334.
[2023-10-31 23:35] LABS: Blood Urea Nitrogen 14 mg/dl (9-20); Calcium 8.9 mg/dl (8.4-10.2); Carbon Dioxide 23 mmol/L (22-30); Chloride 103 mmol/L (98-107); Estimated Creatinine Clearance 77 ml/min; Glucose 83 mg/dl (70-99); Magnesium 2.1 mg/dl (1.6-2.3); Potassium 3.4 mmol/L (3.5-5.1); Sodium 131 mmol/L (135-145); eGFR > 60.00
[2023-10-31 23:47] LABS: Troponin I 0.012 ng/ml
[2023-11-01] VITALS (9 sets, daily range): BP systolic 115–142; BP diastolic 51–92; BMI 24.5
[2023-11-01] MEDS: KCL 40 MEQ PO (00:54)
--- NOTE | 2023-11-01 00:54 | PTCARENOTE ---
HR low 70s, Cardizem gtt off.
[2023-11-01] MEDS: TYLENOL 650 MG PO ×3 (03:29→17:25)
[2023-11-01 04:19] LABS: Blood Urea Nitrogen 12 mg/dl (9-20); Calcium 8.9 mg/dl (8.4-10.2); Carbon Dioxide 23 mmol/L (22-30); Chloride 104 mmol/L (98-107); Estimated Creatinine Clearance 77 ml/min; Glucose 151 mg/dl (70-99); Magnesium 2.3 mg/dl (1.6-2.3); Potassium 4.1 mmol/L (3.5-5.1); Sodium 132 mmol/L (135-145); eGFR > 60.00
[2023-11-01] MEDS: NOVOLOG FLEXPEN-MODERATE RESISTANCE 3 UNITS SC (07:21)
[2023-11-01 07:22] LABS: Glucose - Point of Care 200 mg/dl (70-99)
[2023-11-01] MEDS: NOVOLOG FLEXPEN 8 UNITS SC ×3 (07:22→16:48)
[2023-11-01] MEDS: LANTUS 0.200000000000000011 UNITS SC (07:51)
[2023-11-01] MEDS: ELIQUIS 5 MG PO ×2 (07:51→20:09)
--- NOTE | 2023-11-01 08:07 | W.PN.HOSP.TC ---
Addendum entered and electronically signed by Leandro Harris MD 11/01/23 12:06:
Total time spent on d/c = 38 min. This included today's physical exam, progress note, review of laboratory and diagnostic data, preparation of discharge documents and prescriptions, and discussions about the pt's hospital course and discharge plan
with the patient and other medical malpractice paralegal involved in the patient's care.
Original Note:
Today's Communication/Plan
-
check CBC prior to discharge
Assessment / Plan
Assessment / Plan
Gen: NAD, AAOx3.
Eyes: EOMI, PERRLA, no scleral icterus.
Neck: supple.
CV: remains RRR, +S1/S2, no m/r/g.
Resp: CTAB, no rales, wheezes, or rhonchi.
Abd: +BS, soft, NT, ND
Skin: No rashes.
MSK: Left posterior lateral elbow with minimal joint effusion and mild erythema. Tender to palpation.
Neuro: remains CN 2-12 intact, non-focal.
Psych: Normal mood and affect.
Echo: Normal left ventricular size, wall thickness and systolic function.� Abnormal�septal motion.� No RWMA. EF 48%. Normal diastolic function. Normal left and right atrial sizes. Trace mitral regurgitation.
CXR: No acute cardiopulmonary process.
B/L LE U/S: No evidence of deep venous thrombosis bilaterally.
Atrial flutter with RVR:
-Presented with shortness of breath that was likely secondary to atrial flutter with RVR, unknown chronicity
-was on heparin gtt, now transitioned to Eliquis
-was on Cardizem drip, converted to NSR 10/30/23AM
-Echo above
-minimal trop elevation secondary to nonischemic myocardial injury
-TSH normal
-cardiology following
DKA:
-new onset DM2
-a1c 14.1%
-Initially was on insulin gtt, AG closed (was 24 on admission) now transitioned to Lantus/premeal Novolog
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
RUDY:
-due to prerenal azotemia due to osmotic diuresis from DKA
-resolved with IVFs
Other problems:
Hypokalemia, resolved
Hyponatremia, mild
Hypercalcemia, resolved
Essential HTN: Home Lisinopril/BB on hold
h/o gastric and duodenal thickening concerning for malignancy: refused endoscopy in the past.� Patient to follow-up outpatient. The patient was informed of these radiographic findings again on the morning of 11/01/23. I explained to the patient that
if this is malignancy and he does not have it treated it will be fatal. He verbally acknowledged understanding of this.
h/o iron deficiency anemia: Trend Hb which is stable considering dilution
RA: L elbow physical exam findings likely related to RA. As patient has been started on Eliquis we will not use NSAIDs going further. Will give one dose of 20mg of prednisone now.
FULL/heparin
Anticipated Discharge: Today
Subjective/Interval History
-
Date of Service: November 01, 2023
Denies SOB. c/o L elbow pain due to RA.
Objective Data
-
Labs:
Laboratory Results
10/31/23 11/01/23
23:00 03:34
Sodium 131 L 132 L
Potassium 3.4 L 4.1
Chloride 103 104
Carbon Dioxide 23 23
BUN 14 12
Creatinine 0.9 0.9
Glucose 83 151 H
Calcium 8.9 8.9
Vital Signs:
Vital Signs
Temp Pulse Resp BP Pulse Ox
98.8 F 73 12 115/67 94
11/01/23 07:35 11/01/23 07:00 11/01/23 07:00 11/01/23 04:00 11/01/23 00:58
I&O
10/31/23 11/01/2311/01/24
06:59 06:59 06:59
Intake Total 1805.0 / 1816.0 595 / 595
Output Total 1775 / 1775 925 / 925
Balance 30.0 / 41.0 -330 / -330
--- NOTE | 2023-11-01 09:18 | PN.DE.MGMTRT ---
Insulin Management
- -
10/30/2023: Diabetes Management Consult
73-year-old male admitted with DKA. PMH includes: HTN, COPD, rheumatoid arthritis, iron deficiency anemia, GERD and T2DM.
Pt p/w SOB, noted for glucose of 899, Beta hydroxybutyrate level was >6, A1C of 14.1%, Cr of 1.8 with a GAP of 20 on admission.
He was given regular insulin 7 units and started on an insulin gtt. He remains on continuous insulin infusion, glucose level of 153 to 190, requiring 2 units of insulin/hr. GAP has closed and pt is A/O, states he is hungry and asking for lunch.
Pt reports that he was aware of pre-diabetes dx many years ago. Says he has been eating a lot of popsicles and thinks that's why he is now diabetic.
He has been ordered 1800 bharath diet.
Will transition off insulin gtt. Give Lantus 15 units NOW.Turn drip off @ 11:00 AM.
Start Lantus 15 units @HS, check 3 AM blood sugar, NovoLog 4 units AC with corrective insulin.
pt was provided with instructions for monitor and insulin administration at home.
10/31/2023 Diabetes Management Follow up
Patient transitioned from glycemic protocol yesterday, received lantus 15 units then drip off 1 hour later. Received 4 units novolog AC, required additional 5 units with dinner. HS glucose 284, received additional 6 units novolog.
Will start 20 units lantus daily with novolog 8 units ac with moderate corrective, will follow for further needed adjustments.
11/01/2023 Diabetes management Follow up
Lantus dose increased to 20 units in AM yesterday, glucose trended down to 88 @ hs, fasting this AM 151 venous. Will continue lantus 20 units in AM with novolog 8 units AC. Will reduce corrective insulin from moderate to low.
Diabetes History
- -
Type of Diabetes: 2 requiring insulin
Pre-Admission Diabetes Regimen
10/31/23 11/01/23
23:00 03:34
Creatinine 0.9 0.9
Lab Results
Hemoglobin A1c 14.1 % (4.0-5.6) H 10/29/23 09:58
Insulin Pump Settings
IP Diabetes Regimen
10/31/23 10/31/23 10/31/23
11:59 17:38 21:17
Glucose
POC Glucose 327 H 176 H 88
10/31/23 11/01/23 11/01/23
23:00 03:34 07:11
Glucose 83 151 H
POC Glucose 200 H
Meal type: Breakfast
Meal type: Dinner
Meal type: Lunch
Amount consumed: 100%
Amount consumed: 75%
Amount consumed: 75%
Patient Education
--- NOTE | 2023-11-01 09:42 | W.PN.UPDATE ---
Update Note
Progress Note Update
Patient converted from atrial flutter to sinus rhythm. Stop IV diltiazem. Start Toprol-XL 25 mg twice daily. Continue oral anticoagulation.
We will make follow-up arrangements to reassess atrial arrhythmias and assess for further testing including ischemic assessment.
[2023-11-01] MEDS: TOPROL XL 25 MG PO ×2 (11:07→20:09)
[2023-11-01 11:09] LABS: Hematocrit 35.8 % (39.0-52.0); Hemoglobin 11.9 g/dL (13.0-18.0); Mean Corp Hgb Conc. 33.2 g/dL (33.0-37.0); Mean Corpuscular Hgb 24.5 pg (27.0-31.0); Mean Corpuscular Volume 73.7 fL (80.0-94.0); Mean Platelet Volume 10.1 fL (7.4-10.4); Platelet Count 262 10^3/uL (130-400); Red Blood Cell Count 4.86 10^6/uL (4.70-6.10); Red Cell Dist. Width 18.5 % (11.5-14.5); White Blood Cell Count 6.9 10^3/uL (4.8-10.8)
[2023-11-01] MEDS: DELTASONE 20 MG PO (11:18)
[2023-11-01] MEDS: NOVOLOG FLEXPEN-LOW RESISTANCE 2 UNITS SC (11:55)
[2023-11-01 12:07] LABS: Glucose - Point of Care 210 mg/dl (70-99)
[2023-11-01] MEDS: CARDIZEM 125 IV (13:16)
--- NOTE | 2023-11-01 13:36 | PTCARENOTE ---
Received pt at 0700 in sinus rhythm. At 10:45, pt in SVT 152. BP stable. Pt denies CP/palpitations. PO Metoprolol given around that time. HR now 110s-150 Aflutter. Cardizem gtt restarted per Cardiology.
Insulin administration education today with pt. Pt's coming this afternoon to participate in education as well.
Good appetite.
Reports left elbow pain. States he take NSAID at home for arthritis. notified. Tylenol and prednisone given per order.
--- NOTE | 2023-11-01 13:41 | W.PN.CARDCBS ---
Addendum entered and electronically signed by Gene Gibson MD 11/01/23 15:10:
I saw and examined the patient.
The Orientation And Mobility Specialist's note was reviewed and I agree with the note.
Comment: 73-year-old man past medical history of poorly controlled type 2 diabetes and suspected GI malignancy who presents with DKA and developed rapid atrial flutter
Spontaneously converted from atrial flutter to normal sinus rhythm but now unfortunately is back in flutter again this afternoon
Attempted rate control strategy with p.o. metoprolol and Cardizem drip
Will add amiodarone for additional rate control, hopefully will help him to maintain sinus rhythm if he does spontaneously convert
Explained that I would be hesitant to proceed with MAGALIE/direct-current cardioversion given suspected GI malignancy involving the esophagus and therefore would attempt rate control
Eliquis is new this admission, I reviewed associated risk of stroke from Atrial flutter with patient and who is at bedside
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
Seems to be asymptomatic and appears euvolemic on exam
Recommended eventual ischemic evaluation as well as consideration of flutter ablation
It seems that the patient would prefer conservative management but we can reevaluate as an outpatient
Original Note:
Today's Communication / Plan
-
Restart Cardizem gtt at ordered rate 10 mg/hr
Cont Toprol XL 25 mg BID
Start amiodarone 400 mg TID
Impression / Plan
-
PCP: Zarina Viveros NP, [facility]
Alarm Security Or Surveillance Monitor: None
Impression:
Admitted with DKA
DM 2, poorly controlled with HgbA1c 14.1%
Newly diagnosed typical atrial flutter with RVR
spontaneously converted to SR 10/29/23
recurred with rapid atrial flutter, asymptomatic 11/01/23
New start to chronic Eliquis OAC
RUDY
Hypokalemia
Hyponatremia
Hx of severe circumferential wall thickening of the stomach/duodenum with lymphadenopathy of right upper quadrant lymph nodes concerning for metastatic disease (seen on CT A/P from February 2023)
History of COPD with prior tobacco dependence
History of rheumatoid arthritis
Echo 10/30/23: Normal left ventricular size, wall thickness and systolic function.� Abnormal�septal motion.� No regional wall motion abnormalities are seen. EF 48% by volumetric assessment and is consistent with visual assessment of 45 to 50%. Normal
diastolic function.�Normal left and right atrial sizes.�Trace mitral regurgitation.�There is no prior echocardiogram for comparison
Plan:
-Patient was admitted 10/29/23 with DKA and was in atrial flutter with RVR on initial ECG. Patient was treated for DKA and started on Cardizem gtt resulting in spontaneous conversion to SR by 10/30/23 AM. Patient was asymptomatic with flutter and with
conversion. Patient was planned for d/c 11/01/23 and recurred with atrial flutter with RVR. Patient remains asymptomatic. HRs 150s.
-Restart Cardizem gtt at 10 mg/hr ordered rate as patient is being transferred to tele
-Talked with patient about recurrence of atrial arrhythmia. Patient states that he believes recurrence of flutter is related to micromanagement of his blood sugars and insulin injections. Patient thinks that if he can go home and stop taking meds
that he will 'get evened out'. Patient is wary of procedures. Patient previously recommended upper endoscopy to look at stomach/duodenal thickening with surrounding lymphadenopathy by CT 03/26/23, there was a high suspicion for malignancy, and
patient's recollection/feeling about that situation is that he made the right choice in refusing endo because he feels well and that the CT scan was wrong and the recommendations, while well intended, were wrong.
-Patient is agreeable to the addition of amiodarone 400 mg TID.
-Patient is not a candidate for MAGALIE/CV due to circumferential wall thickening in the distal esophagus by CT 03/26/23
-Patient is tolerating Eliquis 5 mg BID which was new this admission
-EF 45-50% and recommendation is for an outpatient ischemic evaluation. Will continue with these discussions as an outpatient.
Progress Note - Alarm Security Or Surveillance Monitor
Subjective
Date of Service: November 01, 2023
No palpitations
Objective
Labs:
11/01/23 10:59
11/01/23 03:34
Labs
Hgb 11.9 g/dL (13.0-18.0) L 11/01/23 10:59
Hct 35.8 % (39.0-52.0) L 11/01/23 10:59
Plt Count 262 10^3/uL (130-400) 11/01/23 10:59
APTT 73.4 Sec (23.4-35.0) H 10/31/23 05:01
Sodium 132 mmol/L (135-145) L 11/01/23 03:34
Potassium 4.1 mmol/L (3.5-5.1) 11/01/23 03:34
BUN 12 mg/dl (9-20) 11/01/23 03:34
Creatinine 0.9 mg/dL (0.7-1.3) 11/01/23 03:34
Glucose 151 mg/dl (70-99) H 11/01/23 03:34
Troponins
10/29/23 10/29/23 10/30/23
14:07 22:05 05:58
Troponin I 0.013 0.026 D 0.027
10/31/23
23:00
Troponin I 0.012
Vital Signs and I&O:
Vital Signs
Temp Pulse Resp BP Pulse Ox
98.6 F 73 12 115/67 94
11/01/23 11:10 11/01/23 07:00 11/01/23 07:00 11/01/23 04:00 11/01/23 00:58
Vital Signs
Temp Pulse Resp BP Pulse Ox
98.6 F 73 12 115/67 94
11/01/23 11:10 11/01/23 07:00 11/01/23 07:00 11/01/23 04:00 11/01/23 00:58
Intake & Output
10/30/23 10/31/23 11/01/23 11/02/23
06:59 06:59 06:59 06:59
Intake Total 3866.0 / 3979.0 1805.0 / 1816.0 595 / 595 300 / 300
Output Total 800 / 800 1775 / 1775 925 / 925
Balance 3066.0 / 3179.0 30.0 / 41.0 -330 / -330 300 / 300
Physical Exam
Physical Exam
GEN: NAD, AAOx3
HEENT: EOMI, MMM
LUNGS: CTA B/L, no wheezes or rales
CV: Reg and rapid, S1/S2
ABD: soft, BS+
EXT: No edema B/L
NEURO: Gross non-focal
SKIN: No rash
--- NOTE | 2023-11-01 14:16 | CM ---
CM following re: discharge planning.
Reviewed pt's chart, met with pt.
CM provided pt with 30 days free coupon for Eliquis.
Per MD pt is not medically stable to be discharged today, HR 110-150. Per RN Insulin administration education today with pt and his this afternoon.
D/C plan: home with anticipated no needs. Spouse to transport at discharge.
CM will follow with discharge plan updates as hospitalization progresses
[2023-11-01] MEDS: PACERONE 400 MG PO ×2 (15:00→22:49)
[2023-11-01] MEDS: NOVOLOG FLEXPEN-LOW RESISTANCE 1 UNITS SC (16:49)
[2023-11-01 16:58] LABS: Glucose - Point of Care 177 mg/dl (70-99)
--- NOTE | 2023-11-01 18:00 | PTCARENOTE ---
Went over insulin sliding scale and administration with pt and . Pt demonstrated insulin pen injection. Also went over healthy eating habits and signs of hypo- and hyperglycemia.
--- NOTE | 2023-11-01 18:00 | PN.DE ---
Diabetes Education
- -
Diabetes Education-
This is a 73 year old male with new T2DM diagnosis, A1C of 14.1%
Met with Mr. Khanna and his -Toshia at bedside in the ICU for monitor and insulin instructions. He has been provided with the Contour Next Ez glucometer. Reviewed proper testing technique for obtaining a blood glucose, new testing pattern given
ACHS and expected results as noted in take home education booklet. Discussed action of both rapid acting and long acting insulins as well as symptoms and treatment of hypoglycemia. Aware for meals to check blood glucose, inject NovoLog (short acting
insulin) in stomach and eat in 10-20 minutes and Long acting insulin in outer thigh, rotating sites. Aware to store insulin pens that are not in use in the refrigerator. Instructions with fair return demonstration using the glucometer and insulin
pen were noted and result of 211 mg/dl 2 hrs after lunch were noted. Pt's declined return demonstration, stating that she is a very visual person and learns bets by observation of others.
Discussed importance of checking blood sugars 4x/day to assess food/medication effect on his BS, reducing CHO intake and being active. Provided information and handout on outpt education classes. Extra needles left at bedside for nursing staff for
pt to use during insulin administration to reinforce the instructions
Will need RX for test strips and lancets for the Contour Next Ez glucometer, testing 4x/day, NovoLog and Lantus as well as pen needles at discharge.
[2023-11-01 21:39] LABS: Glucose - Point of Care 225 mg/dl (70-99)
--- NOTE | 2023-11-01 23:13 | PTCARENOTE ---
pt converted to nsr. confirmed w/ ekg. breakfast server notified. cardizem gtt on hold. Will monitor.
[2023-11-02] VITALS (21 sets, daily range): BP systolic 86–141; BP diastolic 49–88; BMI 23.9
[2023-11-02] MEDS: TYLENOL 650 MG PO ×3 (00:32→18:02)
[2023-11-02 05:22] LABS: Hematocrit 35.9 % (39.0-52.0); Hemoglobin 11.9 g/dL (13.0-18.0); Mean Corp Hgb Conc. 33.1 g/dL (33.0-37.0); Mean Corpuscular Hgb 24.4 pg (27.0-31.0); Mean Corpuscular Volume 73.7 fL (80.0-94.0); Mean Platelet Volume 10.7 fL (7.4-10.4); Platelet Count 255 10^3/uL (130-400); Red Blood Cell Count 4.87 10^6/uL (4.70-6.10); Red Cell Dist. Width 18.3 % (11.5-14.5); White Blood Cell Count 9.8 10^3/uL (4.8-10.8)
--- NOTE | 2023-11-02 06:31 | PTCARENOTE ---
monitor showing a flutter. ekg nsr. monitor now showing nsr. fill technician notified of events. no new orders. no changes in pt assessment. will monitor.
[2023-11-02] MEDS: PACERONE 400 MG PO (06:45)
[2023-11-02] MEDS: TOPROL XL 25 MG PO ×2 (06:46→20:09)
[2023-11-02 07:01] LABS: Glucose - Point of Care 186 mg/dl (70-99)
--- NOTE | 2023-11-02 07:01 | PTCARENOTE ---
pt again went from sinus to afib back to sinus. po am card meds given. oil scout aware of events. no new orders. report given to oncoming rn.
[2023-11-02] MEDS: NOVOLOG FLEXPEN-LOW RESISTANCE 1 UNITS SC ×2 (07:35→16:25)
[2023-11-02] MEDS: LANTUS 0.200000000000000011 UNITS SC (07:35)
[2023-11-02] MEDS: ELIQUIS 5 MG PO ×2 (07:35→20:09)
[2023-11-02] MEDS: NOVOLOG FLEXPEN 8 UNITS SC (07:35)
--- NOTE | 2023-11-02 08:45 | W.PN.HOSP.TC ---
Today's Communication/Plan
-
see bold
Assessment / Plan
Assessment / Plan
Gen: NAD, AAOx3.
Eyes: EOMI, PERRLA, no scleral icterus.
Neck: supple.
CV: tachy, irreg/irreg, +S1/S2, no m/r/g.
Resp: remains CTAB, no rales, wheezes, or rhonchi.
Abd: +BS, soft, NT, ND
Skin: No rashes.
MSK: Left posterior lateral elbow with minimal joint effusion and mild erythema (improved from yesterday). Tender to palpation.
Neuro: remains CN 2-12 intact, non-focal.
Psych: Normal mood and affect.
Echo: Normal left ventricular size, wall thickness and systolic function.� Abnormal�septal motion.� No RWMA. EF 48%. Normal diastolic function. Normal left and right atrial sizes. Trace mitral regurgitation.
CXR: No acute cardiopulmonary process.
B/L LE U/S: No evidence of deep venous thrombosis bilaterally.
Atrial flutter with RVR:
-Presented with shortness of breath that was likely secondary to atrial flutter with RVR, unknown chronicity
-was on heparin gtt, now transitioned to Eliquis
-was on Cardizem drip, converted to NSR 10/30/23AM. Then was in afib with RVR 11/01/23 and was back on cardizem gtt. Amio PO started, now off cardizem gtt.
-Echo above
-minimal trop elevation secondary to nonischemic myocardial injury
-TSH normal
-cardiology following
DKA:
-new onset DM2
-a1c 14.1%
-Initially was on insulin gtt, AG closed (was 24 on admission) now transitioned to Lantus/premeal Novolog
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
RUDY:
-due to prerenal azotemia due to osmotic diuresis from DKA
-resolved with IVFs
Other problems:
Hypokalemia, resolved
Hyponatremia, mild
Hypercalcemia, resolved
Essential HTN: Home Lisinopril/BB on hold
h/o gastric and duodenal thickening concerning for malignancy: refused endoscopy in the past.� Patient to follow-up outpatient. The patient was informed of these radiographic findings again on the morning of 11/01/23. I explained to the patient that
if this is malignancy and he does not have it treated it will be fatal. He verbally acknowledged understanding of this. On 11/02/23 I asked the patient if he wanted GI to see him while he was here regarding gastric and duodenal thickening. He said
that he did not want GI to see him.
h/o iron deficiency anemia: Hb stable considering dilution
RA: L elbow physical exam findings likely related to RA. As patient has been started on Eliquis we will not use NSAIDs going further. s/p 1 dose 20mg of prednisone on 11/01/23. Will give another 10mg Prednisone today.
FULL/heparin
Anticipated Discharge: 24 - 48 hours
Subjective/Interval History
-
Date of Service: November 02, 2023
Denies CP/SOB.
Objective Data
-
Labs:
Laboratory Results
11/02/23
05:04
WBC 9.8
Hgb 11.9 L
Hct 35.9 L
Plt Count 255
Vital Signs:
Vital Signs
Temp Pulse Resp BP Pulse Ox
98.1 F 74 19 134/79 94
11/02/23 07:40 11/02/23 08:00 11/01/23 08:00 11/02/23 08:00 11/01/23 00:58
I&O
11/01/23 11/02/23 11/03/23
06:59 06:59 06:59
Intake Total 595 / 595 300 / 300 480 / 480
Output Total 925 / 925
Balance -330 / -330 300 / 300 480 / 480
--- NOTE | 2023-11-02 10:30 | PTCARENOTE ---
Pt went into a fib RVR HR up to 140s. pt still in a fib HR 90-110s. Cardiology PA notified, amio gtt ordered.
[2023-11-02] MEDS: CORDARONE 518 MG IV (10:34)
[2023-11-02] MEDS: DELTASONE 10 MG PO (10:34)
[2023-11-02] MEDS: NOVOLOG FLEXPEN-LOW RESISTANCE 2 UNITS SC (11:43)
[2023-11-02] MEDS: NOVOLOG FLEXPEN 10 UNITS SC ×2 (11:43→16:26)
--- NOTE | 2023-11-02 11:48 | PN.DE.MGMTRT ---
Insulin Management
- -
: Diabetes Management Follow up
73-year-old male admitted with DKA. PMH includes: HTN, COPD, rheumatoid arthritis, iron deficiency anemia, GERD and T2DM.
Pt p/w SOB, noted for glucose of 899, Beta hydroxybutyrate level was >6, A1C of 14.1%, Cr of 1.8 with a GAP of 20 on admission.
Patient is more awake and alert today but is forgetful. His was present yesterday for instruction for glucose testing and insulin administration.
Current insulin regimen is 20 units lantus in AM with novolog 8 units AC. Glucose yesterday was 177 to 225 requiring corrective insulin at all meals. Will increase AC novolog to 10 units with low corrective insulin.
I reviewed and had patient return demonstrate insulin pen prep and injection technique. He did require verbal cuing. I spoke with patient nurse and asked that she reinforce insulin pen use.
Diabetes History
- -
Type of Diabetes: 2 requiring insulin
Pre-Admission Diabetes Regimen
Lab Results
Hemoglobin A1c 14.1 % (4.0-5.6) H 10/29/23 09:58
Insulin Pump Settings
IP Diabetes Regimen
11/01/23 11/01/23 11/01/23
11:51 16:47 21:29
POC Glucose 210 H 177 H 225 H
11/02/23
06:49
POC Glucose 186 H
Meal type: Dinner
Meal type: Lunch
Amount consumed: 100%
Amount consumed: 100%
Patient Education
[2023-11-02 11:51] LABS: Glucose - Point of Care 237 mg/dl (70-99)
--- NOTE | 2023-11-02 14:15 | W.PN.CARDCBS ---
Today's Communication / Plan
-
Continue oral amiodarone and the addition of IV amiodarone
Tomorrow switch to oral amiodarone only
Continue oral anticoagulation
Will need follow-up on discharge
Impression / Plan
-
PCP: Zarina Viveros ECONOMIST RESEARCH ASSISTANT, [facility]
Honing Machine Operator Semiautomatic: None
Impression:
Admitted with DKA
DM 2, poorly controlled with HgbA1c 14.1%
Newly diagnosed typical atrial flutter with RVR
spontaneously converted to SR 10/29/23
recurred with rapid atrial flutter, asymptomatic 11/01/23
New start to chronic Eliquis OAC
RUDY
Hypokalemia
Hyponatremia
Hx of severe circumferential wall thickening of the stomach/duodenum with lymphadenopathy of right upper quadrant lymph nodes concerning for metastatic disease (seen on CT A/P from February 2023)
History of COPD with prior tobacco dependence
History of rheumatoid arthritis
Echo 10/30/23: Normal left ventricular size, wall thickness and systolic function.� Abnormal�septal motion.� No regional wall motion abnormalities are seen. EF 48% by volumetric assessment and is consistent with visual assessment of 45 to 50%. Normal
diastolic function.�Normal left and right atrial sizes.�Trace mitral regurgitation.�There is no prior echocardiogram for comparison
Plan:
-Patient was admitted 10/29/23 with DKA and was in atrial flutter with RVR on initial ECG. Patient was treated for DKA and started on Cardizem gtt resulting in spontaneous conversion to SR by 10/30/23 AM. Patient then with paroxysmal atrial arrhythmias
at high rates. Currently in sinus rhythm.
-Oral amiodarone was started for rate control and rhythm control. We had to add IV amiodarone in addition given breakthrough. Hopefully tomorrow can switch to oral amiodarone only. While in the hospital 400 3 times daily then decrease to 200 mg
twice daily for 1 month and then 200 mg daily
-Continue oral anticoagulation. He is tolerating Eliquis.
-He would like conservative management of medical conditions.
-He will need outpatient follow-up.
-Patient previously recommended upper endoscopy to look at stomach/duodenal thickening with surrounding lymphadenopathy by CT 03/26/23, there was a high suspicion for malignancy, and patient's recollection/feeling about that situation is that he made
the right choice in refusing endo because he feels well and that the CT scan was wrong and the recommendations, while well intended, were wrong. He declines GI assessment.
-Noted for the future would avoid MAGALIE/CV due to circumferential wall thickening in the distal esophagus by CT 03/26/23
-EF 45-50% and recommendation is for an outpatient ischemic evaluation. Will continue with these discussions as an outpatient.
Progress Note - Honing Machine Operator Semiautomatic
Subjective
Date of Service: November 02, 2023
He has hiccups. He denies chest pain and palpitations. He has some swallowing difficulties which are chronic.
Objective
Labs:
11/02/23 05:04
11/01/23 03:34
Labs
Hgb 11.9 g/dL (13.0-18.0) L 11/02/23 05:04
Hct 35.9 % (39.0-52.0) L 11/02/23 05:04
Plt Count 255 10^3/uL (130-400) 11/02/23 05:04
APTT 73.4 Sec (23.4-35.0) H 10/31/23 05:01
Sodium 132 mmol/L (135-145) L 11/01/23 03:34
Potassium 4.1 mmol/L (3.5-5.1) 11/01/23 03:34
BUN 12 mg/dl (9-20) 11/01/23 03:34
Creatinine 0.9 mg/dL (0.7-1.3) 11/01/23 03:34
Glucose 151 mg/dl (70-99) H 11/01/23 03:34
Troponins
03/05/24
23:00
Troponin I 0.012
Vital Signs and I&O:
Vital Signs
Temp Pulse Resp BP Pulse Ox
98.6 F 74 19 134/79 94
11/02/23 11:33 11/02/23 08:00 11/01/23 08:00 11/02/23 08:00 11/01/23 00:58
Vital Signs
Temp Pulse Resp BP Pulse Ox
98.6 F 74 19 134/79 94
11/02/23 11:33 11/02/23 08:00 11/01/23 08:00 11/02/23 08:00 11/01/23 00:58
Intake & Output
10/31/23 11/01/23 11/02/23 11/03/23
06:59 06:59 06:59 06:59
Intake Total 1805.0 / 1816.0 595 / 595 300 / 300 480 / 480
Output Total 1775 / 1775 925 / 925
Balance 30.0 / 41.0 -330 / -330 300 / 300 480 / 480
Physical Exam
Physical Exam
General: Well developed, well nourished in NAD.
Heart: Non displaced PMI, RRR, no murmurs, No S3, S4, no rubs.
Lungs: Clear to auscultation bilaterally, no wheeze, rhonchi, rubs bilaterally,
normal expiratory phase.
Extremities: No clubbing, cyanosis or edema bilaterally.
Neuro: Grossly nonfocal, awake, alert and oriented x3.
--- NOTE | 2023-11-02 15:07 | PTCARENOTE ---
Pt on amio gtt. Pt bradycardic, as low as 37bpm. Eva Eaton notified via TT. pt denies any complaints
--- NOTE | 2023-11-02 15:20 | CM ---
CM following re: discharge planning.
Reviewed pt's chart, met with pt.
Per MD pt is not medically stable to be discharged today, went to in A-fib, HR up to 140. Per RN Insulin administration education daily with pt and his spouse.
D/C plan: home with anticipated no needs. Spouse to transport at discharge.
CM will follow with discharge plan updates as hospitalization progresses
[2023-11-02] MEDS: PACERONE PO ×2 (15:55→22:45)
[2023-11-02 16:39] LABS: Glucose - Point of Care 152 mg/dl (70-99)
--- NOTE | 2023-11-02 22:46 | PTCARENOTE ---
Amiodarone held due to heart rate in the 30s and 40s at times
[2023-11-03] VITALS: BP 104/63
[2023-11-03 04:00] VITALS: BP 109/50
[2023-11-03] MEDS: TYLENOL 650 MG PO (05:16)
[2023-11-03 05:27] LABS: Hematocrit 39.4 % (39.0-52.0); Hemoglobin 12.9 g/dL (13.0-18.0); Mean Corp Hgb Conc. 32.7 g/dL (33.0-37.0); Mean Corpuscular Hgb 24.6 pg (27.0-31.0); Mean Corpuscular Volume 75.2 fL (80.0-94.0); Mean Platelet Volume 10.6 fL (7.4-10.4); Platelet Count 306 10^3/uL (130-400); Red Blood Cell Count 5.24 10^6/uL (4.70-6.10); Red Cell Dist. Width 19.3 % (11.5-14.5); White Blood Cell Count 10.5 10^3/uL (4.8-10.8)
[2023-11-03 05:51] LABS: Blood Urea Nitrogen 17 mg/dl (9-20); Carbon Dioxide 21 mmol/L (22-30); Chloride 107 mmol/L (98-107); Estimated Creatinine Clearance 69 ml/min; Glucose 161 mg/dl (70-99); Potassium 3.9 mmol/L (3.5-5.1); Sodium 133 mmol/L (135-145); eGFR > 60.00
[2023-11-03] MEDS: LANTUS 0.200000000000000011 UNITS SC (07:31)
[2023-11-03] MEDS: NOVOLOG FLEXPEN-LOW RESISTANCE 1 UNITS SC ×3 (07:31→16:16)
[2023-11-03] MEDS: NOVOLOG FLEXPEN 10 UNITS SC ×3 (07:31→16:16)
--- NOTE | 2023-11-03 07:31 | W.PN.HOSP.TC ---
Addendum entered and electronically signed by Leandro Harris MD 11/03/23 16:10:
Medically cleared for discharge as per cardiology.
Total time spent on d/c = 34 min. This included today's physical exam, progress note, review of laboratory and diagnostic data, preparation of discharge documents and prescriptions, and discussions about the pt's hospital course and discharge plan
with the patient and other medical scribe involved in the patient's care.
Original Note:
Today's Communication/Plan
-
will discuss timing of discharge with cardiology
Assessment / Plan
Assessment / Plan
Gen: NAD, AAOx3.
Eyes: EOMI, PERRLA, no scleral icterus.
Neck: supple.
CV: RRR, +S1/S2, no m/r/g.
Resp: continues to remain CTAB, no rales, wheezes, or rhonchi.
Abd: +BS, soft, NT, ND
Skin: No rashes.
MSK: Left posterior lateral elbow with minimal joint effusion and mild erythema (similar to yesterday). Slightly tender to palpation.
Neuro: remains CN 2-12 intact, non-focal.
Psych: Normal mood and affect.
Echo: Normal left ventricular size, wall thickness and systolic function.� Abnormal�septal motion.� No RWMA. EF 48%. Normal diastolic function. Normal left and right atrial sizes. Trace mitral regurgitation.
CXR: No acute cardiopulmonary process.
B/L LE U/S: No evidence of deep venous thrombosis bilaterally.
Atrial flutter with RVR:
-Presented with shortness of breath that was likely secondary to atrial flutter with RVR, unknown chronicity
-was on heparin gtt, now transitioned to Eliquis
-was on Cardizem drip, converted to NSR 10/30/23AM. Then was in afib with RVR 11/01/23 and was back on cardizem gtt. Amio PO started (also given IV Amio on 11/02/23), now off cardizem gtt and converted to SR.
-Echo above
-minimal trop elevation secondary to nonischemic myocardial injury
-TSH normal
-cardiology following
DKA:
-new onset DM2
-a1c 14.1%
-Initially was on insulin gtt, AG closed (was 24 on admission) now transitioned to Lantus/premeal Novolog
-diabetes HAT BLOCKING MACHINE OPERATOR following
RUDY:
-due to prerenal azotemia due to osmotic diuresis from DKA
-resolved with IVFs
Other problems:
Hypokalemia, resolved
Hyponatremia, mild
Hypercalcemia, resolved
Essential HTN: Home Lisinopril/BB on hold
h/o gastric and duodenal thickening concerning for malignancy: refused endoscopy in the past.� Patient to follow-up outpatient. The patient was informed of these radiographic findings again on the morning of 11/01/23. I explained to the patient that
if this is malignancy and he does not have it treated it will be fatal. He verbally acknowledged understanding of this. On 11/02/23 I asked the patient if he wanted GI to see him while he was here regarding gastric and duodenal thickening. He said
that he did not want GI to see him.
h/o iron deficiency anemia: Hb stable considering dilution
RA: L elbow physical exam findings likely related to RA. As patient has been started on Eliquis we will not use NSAIDs going further. s/p 20mg of prednisone on 11/01/23 and 10mg prednisone on 11/02/23. Will give another 10mg Prednisone today. Of note,
patient reports he does not follow with rheumatology anymore as they recommended biologic medications and he did not want to take them.
FULL/heparin
Anticipated Discharge: Within 24 hours
Subjective/Interval History
-
Date of Service: November 03, 2023
Denies CP/SOB. Still with L elbow pain.
Objective Data
-
Labs:
Laboratory Results
11/03/23
05:13
WBC 10.5
Hgb 12.9 L
Hct 39.4
Plt Count 306
Sodium 133 L
Potassium 3.9
Chloride 107
Carbon Dioxide 21 L
BUN 17
Creatinine 1.0
Glucose 161 H
Calcium 9.0
Vital Signs:
Vital Signs
Temp Pulse Resp BP Pulse Ox
98.3 F 75 19 109/50 94
11/03/23 04:00 11/03/23 05:00 11/01/23 08:00 11/03/23 04:00 11/01/23 00:58
I&O
11/02/23 11/03/23 11/04/23
06:59 06:59 06:59
Intake Total 300 / 300 480 / 480
Balance 300 / 300 480 / 480
[2023-11-03] MEDS: ELIQUIS 5 MG PO (07:32)
[2023-11-03] MEDS: TOPROL XL 25 MG PO (07:32)
[2023-11-03] MEDS: PACERONE 400 MG PO (07:32)
[2023-11-03 07:37] LABS: Glucose - Point of Care 153 mg/dl (70-99)
--- NOTE | 2023-11-03 07:38 | PN.DE.MGMTRT ---
Insulin Management
- -
11/03/2023 Diabetes Management Follow up
73-year-old male admitted with DKA. PMH includes: HTN, COPD, rheumatoid arthritis, iron deficiency anemia, GERD and T2DM.
Pt p/w SOB, noted for glucose of 899, Beta hydroxybutyrate level was >6, A1C of 14.1%, Cr of 1.8 with a GAP of 20 on admission
Patient has been receiving 20 units lantus in AM with novolog AC. Novolog dose increased yesterday to 10 units AC, glucose improved to 152 pre dinner and 161 this AM. Will continue 10 units novolog ac with lantus 20 units in AM
Diabetes History
- -
Type of Diabetes: 2 requiring insulin
Pre-Admission Diabetes Regimen
11/03/23
05:13
Creatinine 1.0
Lab Results
Hemoglobin A1c 14.1 % (4.0-5.6) H 10/29/23 09:58
Insulin Pump Settings
IP Diabetes Regimen
11/02/23 11/02/23 11/03/23
11:40 16:24 05:13
Glucose 161 H
POC Glucose 237 H 152 H
11/03/23
07:26
Glucose
POC Glucose 153 H
Meal type: Dinner
Meal type: Lunch
Meal type: Breakfast
Amount consumed: 70%
Amount consumed: 100%
Amount consumed: 100%
Patient Education
[2023-11-03 08:05] VITALS: BP 92/53
[2023-11-03 11:03] VITALS: BP 136/83
[2023-11-03 11:31] VITALS: BP 136/83; PULSE 70; O2SAT 95
--- NOTE | 2023-11-03 11:36 | PTOTSP ---
PATIENT FUNCTIONING INDEPENDENTLY ON LEVEL SURFACES IN SLOAN AND AD JOSETTE IN ROOM. PATIENT REQUIRING NO FURTHER SKILLED ACUTE CARE P.T. SERVICES AT THIS TIME. WILL DISCHARGE FROM P.T.
[2023-11-03 11:43] LABS: Glucose - Point of Care 178 mg/dl (70-99)
[2023-11-03] MEDS: DELTASONE 10 MG PO (12:32)
--- NOTE | 2023-11-03 13:31 | CM ---
CM following re: discharge planning.
Reviewed pt's chart, met with pt.
According to pt most likely will be discharged today. Pt is aware and he stated he spoke to two Drs today and he was told he will be discharged home today. IMM reviewed, placed in chart, pt has a copy. Pt stated his spouse will transport home.
OT evaluations noted - home OT/PT recommended. Pt is aware, expressed his agreement. A list of [facility] vendors provided. pt preferred [facility]. A referral to [facility] made: PT, OT, RN, diabetes management.
Please fax discharge instructions to [facility] at [phone]
D/C plan: home with [facility] and family support. Spouse to transport.
[2023-11-03 15:25] VITALS: BP 105/77
--- NOTE | 2023-11-03 15:38 | W.PN.CARDCBS ---
Today's Communication / Plan
-
Decrease amiodarone to 200 mg p.o. twice daily and okay for discharge from cardiology viewpoint
Impression / Plan
-
PCP: Zarina Viveros TOW MATE, [facility]
Filter Press Tender: None
Impression:
Admitted with DKA
DM 2, poorly controlled with HgbA1c 14.1%
Newly diagnosed typical atrial flutter with RVR
spontaneously converted to SR 10/29/23
recurred with rapid atrial flutter, asymptomatic 11/01/23
New start to chronic Eliquis OAC
RUDY
Hypokalemia
Hyponatremia
Hx of severe circumferential wall thickening of the stomach/duodenum with lymphadenopathy of right upper quadrant lymph nodes concerning for metastatic disease (seen on CT A/P from February 2023)
History of COPD with prior tobacco dependence
History of rheumatoid arthritis
Echo 10/30/23: Normal left ventricular size, wall thickness and systolic function.� Abnormal�septal motion.� No regional wall motion abnormalities are seen. EF 48% by volumetric assessment and is consistent with visual assessment of 45 to 50%. Normal
diastolic function.�Normal left and right atrial sizes.�Trace mitral regurgitation.�There is no prior echocardiogram for comparison
Plan:
Remains in sinus rhythm
Stable cardiology status for discharge and will change to amiodarone 200 mg p.o. twice daily
Cont Eliquis.
He would like conservative management of medical conditions.
Outpatient follow-up has been arranged.
Patient previously recommended upper endoscopy to look at stomach/duodenal thickening with surrounding lymphadenopathy by CT 03/26/23, there was a high suspicion for malignancy, and patient's recollection/feeling about that situation is that he made
the right choice in refusing endo because he feels well and that the CT scan was wrong and the recommendations, while well intended, were wrong. He declines GI assessment.
Noted for the future would avoid MAGALIE/CV due to circumferential wall thickening in the distal esophagus by CT 03/26/23
EF 45-50% and recommendation is for an outpatient ischemic evaluation. Will continue with these discussions as an outpatient.
Discussed with primary service
preadmit data
-Patient was admitted 10/29/23 with DKA and was in atrial flutter with RVR on initial ECG. Patient was treated for DKA and started on Cardizem gtt resulting in spontaneous conversion to SR by 10/30/23 AM. Patient then with paroxysmal atrial arrhythmias
at high rates. Currently in sinus rhythm.
Progress Note - Filter Press Tender
Subjective
Date of Service: November 03, 2023
No complaints
Objective
Labs:
11/03/23 05:13
11/03/23 05:13
Labs
Hgb 12.9 g/dL (13.0-18.0) L 11/03/23 05:13
Hct 39.4 % (39.0-52.0) 11/03/23 05:13
Plt Count 306 10^3/uL (130-400) 11/03/23 05:13
APTT 73.4 Sec (23.4-35.0) H 10/31/23 05:01
Sodium 133 mmol/L (135-145) L 11/03/23 05:13
Potassium 3.9 mmol/L (3.5-5.1) 11/03/23 05:13
BUN 17 mg/dl (9-20) 11/03/23 05:13
Creatinine 1.0 mg/dL (0.7-1.3) 11/03/23 05:13
Glucose 161 mg/dl (70-99) H 11/03/23 05:13
Troponins
10/31/23
23:00
Troponin I 0.012
Vital Signs and I&O:
Vital Signs
Temp Pulse Resp BP Pulse Ox
98.0 F 76 19 92/53 94
11/03/23 11:41 11/03/23 10:00 11/01/23 08:00 11/03/23 08:05 11/01/23 00:58
Vital Signs
Temp Pulse Resp BP Pulse Ox
98.0 F 76 19 92/53 94
11/03/23 11:41 11/03/23 10:00 11/01/23 08:00 11/03/23 08:05 11/01/23 00:58
Intake & Output
11/01/23 11/02/23 11/03/23 11/04/23
06:59 06:59 06:59 06:59
Intake Total 595 / 595 300 / 300 480 / 480
Output Total 925 / 925
Balance -330 / -330 300 / 300 480 / 480
Physical Exam
Physical Exam
General: Well developed, well nourished in NAD.
Neck: Supple, no JVD, HJR, carotids +2 B/L, no bruits bilaterally.
Heart: Non displaced PMI, RRR, no murmurs, No S3, S4, no rubs.
Lungs: Clear to auscultation bilaterally, no wheeze, rhonchi, rubs bilaterally,
normal expiratory phase.
Extremities: No clubbing, cyanosis or edema bilaterally.
Neuro: Grossly nonfocal, awake, alert and oriented x3.
--- NOTE | 2023-11-03 16:07 | VNURNOTE ---
Home Health Liaison met with patient at 1400 to discuss [facility] nurse visits, schedule and homebound status. Patient is agreeable and understands that visits at home will be 2-3 x per week to assess and teach medical management. Patient is anxious for
a trained nurse to assist him daily at home. Liaison explained that [facility] would only be out 2-3 visits per week to teach. Patient was encouraged to check with his insurance for further support. Emotional support provided and patient was encouraged to
have his spouse present during the initial visits for teaching and support.
[facility] brochure provided with contact information. Patient is aware that [facility] will contact him for start of care in 1-2 days after discharge from .
[facility] referral completed in [facility].
--- NOTE | 2023-11-03 16:22 | W.DCSUMMARY ---
Addendum entered and electronically signed by Leandro Harris MD 11/03/23 16:59:
Clarification: The patient's Toprol-XL is 25 mg by mouth twice daily. This has been corrected on the patient's discharge instructions.
Original Note:
Discharge Summary
Discharge Data
Date of Admission: 10/29/23
Date of Discharge: 11/03/23
-
Pending Results: No
Hospital Course
Primary diagnoses:
Typical atrial flutter with rapid ventricular response
New onset type 2 diabetes mellitus with diabetic ketoacidosis
Acute kidney injury
h/o gastric and duodenal thickening concerning for malignancy
Secondary diagnoses:
Iron deficiency anemia
Hypokalemia
Hyponatremia
Hypercalcemia
Essential hypertension
Rheumatoid arthritis
Consultants:
Cardiology
Critical care medicine
Imaging:
Echo: Normal left ventricular size, wall thickness and systolic function.� Abnormal�septal motion.� No RWMA. EF 48%. Normal diastolic function. Normal left and right atrial sizes. Trace mitral regurgitation.
CXR: No acute cardiopulmonary process.
B/L LE U/S: No evidence of deep venous thrombosis bilaterally.
73-year-old male who presented with chief complaint of shortness of breath as outlined in the H&P done on admission. Hospital course by problem was:
Atrial flutter with RVR: The patient presented with shortness of breath that was likely secondary to atrial flutter with RVR, unknown chronicity. Echo above. The patient had minimal troponin elevation secondary to nonischemic myocardial injury. TSH
was normal. He was on a heparin drip and then transitioned to Eliquis. The patient was also on a Cardizem drip and converted to NSR 10/30/23AM.� The patient then went back into atrial flutter with on RVR 11/01/23 and was placed back on cardizem gtt. he
was also started on oral amiodarone (also given IV Amio on 11/02/23). He converted back to normal sinus rhythm.
New onset type 2 diabetes mellitus with diabetic ketoacidosis: Patient was found to have new onset type 2 diabetes mellitus. His hemoglobin A1c was 14.1%. He was initially was on insulin gtt, AG closed (was 24 on admission) and was then
transitioned to�Lantus/premeal Novolog. He was seen by the diabetes nurse practitioner.
-diabetes SOFTWARE TESTER following
Acute kidney injury: This was due to prerenal azotemia due to osmotic diuresis from DKA and resolved with IV fluids.
History of gastric and duodenal thickening concerning for malignancy: This was present on admission. The patient had refused endoscopy in the past.� The patient was informed of these radiographic findings (form 03/26/24) again on the morning of
11/01/23.� I explained to the patient that if this is malignancy and he does not have it treated it will be fatal.� He verbally acknowledged understanding of this. On 11/02/23 I asked the patient if he wanted GI to see him while he was here regarding
his prior radiographic finding of gastric and duodenal thickening.� He said that he did not want GI to see him at this time.
Discharge Plan
-
Patient Disposition: Home (Routine Discharge)
Discharge Diagnosis/Procedures: Typical atrial flutter with rapid ventricular response, new onset type 2 diabetes mellitus with diabetic ketoacidosis, acute kidney injury
Condition: Good
Diet: Diabetic, Carb Controlled
Activity: As tolerated
Driving Restrictions: As prior to admission
Blood Work: BMP and CBC in 1 week, prescription from PCP
Referrals:
Ela Santso PA-C [Specified Professional Personl] - 11/10/23 9:20 am (You have a cardiology follow-up appointment at the [facility]. Please call with questions)
Zarina Viveros CRNP [Family Provider] - in less than 1 week
Jigna Childress, DO [Active] -
(sleep eval, 6 weeks
New onset Afib)
Prescriptions:
New
Eliquis 5 mg Tablet
5 mg PO BID Qty: 60 11RF
(DME) Contour Next Test Strips Strip
Qty: 200 0RF
Rx Instructions:
As Directed
insulin glargine [Lantus Solostar U-100 Insulin] 100 unit/mL (3 mL) Insulin Pen
20 unit SC DAILY Qty: 5 0RF
(DME) pen needle, diabetic [BD Ultra-Fine Zahraa Pen Needle] 32 gauge x ' Needle
Qty: 200 0RF
Rx Instructions:
As Directed
(DME) lancets [Color Lancets] 21 gauge Misc
Qty: 200 0RF
Rx Instructions:
As Directed
insulin lispro [Humalog KwikPen Insulin] 100 unit/mL insulin pen
10 unit SC TID Qty: 15 0RF
acetaminophen 325 mg Tablet
650 mg PO Q4HPRN PRN (Reason: mild pain and temp>100.4) Qty: 0 0RF
amiodarone [Pacerone] 200 mg Tablet
200 mg PO BID Qty: 60 0RF
metoprolol succinate 25 mg Tablet Extended Release 24 Hr
25 mg PO BID Qty: 60 0RF
Continued
therapeutic multivitamin Tablet
1 tab PO DAILY Qty: 0
calcium carbonate [Tums] 200 mg calcium (500 mg) Tablet,Chewable
200 mg PO TIDPRN PRN (Reason: gerd)
metoprolol succinate [Toprol XL] 25 mg Tablet Extended Release 24 Hr
25 mg PO DAILY
Excedrin Extra Strength 250-250-65 mg Tablet
1 tab PO DAILYPRN PRN (Reason: headaches)
ferrous sulfate 325 mg (65 mg iron) tablet,delayed release (DR/EC)
325 mg PO DAILY
Discontinued
lisinopril 10 mg Tablet
10 mg PO DAILY
indomethacin 50 mg Capsule
50 mg PO QID PRN (Reason: Arthritis flame)
Discharge Orders:
Discharge Patient (As Directed); Ordered 11/03/23
Ordered By: Leandro Harris
[2023-11-03 16:24] LABS: Glucose - Point of Care 166 mg/dl (70-99)
--- NOTE | 2023-11-03 17:32 | PTCARENOTE ---
Diabetes education provided. Pt demonstrated knowledge diabetic medication administration. Showed ability to check own sugar and administered pre-dinner insulin to self. Home medications and instructions reviewed with pt and spouse. Escorted out by
wheelchair.
== END 2023-11-03 17:35 | disposition home health service (06) | DRG 308 ==
LOC: ICU 12:19
PROVIDERS: Nurse Practitioner Family; Nurse Practitioner Primary Care; Physician Assistant; ADMITTING PHYSICIAN Internal Medicine; ATTENDING PHYSICIAN Internal Medicine; CONSULT PHYSICIAN Internal Medicine Cardiovascular Disease; EMERGENCY PHYSICIAN Emergency Medicine; FAMILY PHYSICIAN Nurse Practitioner Family; OTHER PHYSICIAN Internal Medicine Critical Care Medicine
DX: I48.3 Typical atrial flutter (principal); E11.10 Type 2 diabetes mellitus with ketoacidosis without coma; C17.0 Malignant neoplasm of duodenum; N17.9 Acute kidney failure, unspecified; C77.9 Secondary and unspecified malignant neoplasm of lymph node, unspecified; I5A Non-ischemic myocardial injury (non-traumatic); E87.1 Hypo-osmolality and hyponatremia; R06.6 Hiccough; I10 Essential (primary) hypertension; K21.9 Gastro-esophageal reflux disease without esophagitis; M06.9 Rheumatoid arthritis, unspecified; I48.91 Unspecified atrial fibrillation; D50.9 Iron deficiency anemia, unspecified; J44.89 Other specified chronic obstructive pulmonary disease; D72.829 Elevated white blood cell count, unspecified; I95.9 Hypotension, unspecified; J30.2 Other seasonal allergic rhinitis; E87.6 Hypokalemia; R09.02 Hypoxemia; K44.9 Diaphragmatic hernia without obstruction or gangrene; I42.9 Cardiomyopathy, unspecified; K40.20 Bilateral inguinal hernia, without obstruction or gangrene, not specified as recurrent; N40.0 Benign prostatic hyperplasia without lower urinary tract symptoms; Z87.891 Personal history of nicotine dependence; Z87.19 Personal history of other diseases of the digestive system; Z82.49 Family history of ischemic heart disease and other diseases of the circulatory system; Z80.42 Family history of malignant neoplasm of prostate; Z80.0 Family history of malignant neoplasm of digestive organs
CPT/HCPCS: 71045; 80048; 80053; 81003; 82010; 82805; 82947; 82962; 83036; 83735; 83880; 84132; 84443; 84484; 85025; 85027; 85730; 87040; 87070; 93005; 93306; 93970; 96361; 96374; 96375; 97116; 97163; 97167; 97530; 99285; Q9950

== ENCOUNTER → 2023-11-11 07:21 | Outpatient (REF) | payer OTHER, SELFPAY ==
[2023-11-11 08:55] LABS: % Eosinophils 4.9 % (0-6); % Immature Granulocytes 0.8 % (0-0.5); % Lymphocytes 25.9 % (20.5-51.1); % Monocytes 10.1 % (1.7-9.3); % Neutrophils 57.3 % (42.2-75.2); Absolute Basophils 0.1 10^3/uL (0-0.2); Absolute Eosinophils 0.5 10^3/uL (0-0.7); Absolute Immature Granulocytes 0.1 10^3/uL (0-0.05); Absolute Lymphocytes 2.4 10^3/uL (1.2-3.4); Absolute Monocytes 0.9 10^3/uL (0.1-0.6); Absolute Neutrophils 5.2 10^3/uL (1.4-6.5); Hematocrit 40.8 % (39.0-52.0); Hemoglobin 12.5 g/dL (13.0-18.0); Mean Corp Hgb Conc. 30.6 g/dL (33.0-37.0); Mean Corpuscular Hgb 24.1 pg (27.0-31.0); Mean Corpuscular Volume 78.8 fL (80.0-94.0); Mean Platelet Volume 9.5 fL (7.4-10.4); Nucleated Red Blood Cells % 0 % (-); Platelet Count 429 10^3/uL (130-400); Red Blood Cell Count 5.18 10^6/uL (4.70-6.10); Red Cell Dist. Width 19.9 % (11.5-14.5); White Blood Cell Count 9.1 10^3/uL (4.8-10.8)
[2023-11-11 09:26] LABS: ALT (SGPT) 19 U/L (0-50); AST (SGOT) 22 U/L (17-59); Albumin 3.6 g/dl (3.5-5.0); Alkaline Phosphatase 89 U/L (38-126); Blood Urea Nitrogen 18 mg/dl (9-20); Calcium 9.2 mg/dl (8.4-10.2); Carbon Dioxide 27 mmol/L (22-30); Chloride 101 mmol/L (98-107); Glucose 203 mg/dl (70-99); Potassium 4.8 mmol/L (3.5-5.1); Sodium 135 mmol/L (135-145); Total Bilirubin 0.4 mg/dl (0.2-1.3); Total Protein 7.5 g/dl (6.3-8.2); eGFR > 60.00
[2023-11-11 09:31] LABS: Glycohemoglobin (HgbA1c) 12.6 % (4.0-5.6)
== END ==
LOC: REG 07:21
PROVIDERS: ATTENDING PHYSICIAN Nurse Practitioner Family
DX: Z13.0 Encounter for screening for diseases of the blood and blood-forming organs and certain disorders involving the immune mechanism (principal); E11.65 Type 2 diabetes mellitus with hyperglycemia
CPT/HCPCS: 36415; 80053; 83036; 85025

== ENCOUNTER → 2024-02-14 07:03 | Outpatient (REF) | payer OTHER, SELFPAY ==
[2024-02-14 09:02] LABS: ALT (SGPT) 16 U/L (0-50); AST (SGOT) 25 U/L (17-59); Albumin 3.9 g/dl (3.5-5.0); Alkaline Phosphatase 70 U/L (38-126); Blood Urea Nitrogen 20 mg/dl (9-20); Calcium 10.3 mg/dl (8.4-10.2); Carbon Dioxide 23 mmol/L (22-30); Chloride 105 mmol/L (98-107); Glucose 127 mg/dl (70-99); HDL Cholesterol 60 mg/dl; LDL Cholesterol, Calculated 139 mg/dl; Potassium 4.1 mmol/L (3.5-5.1); Sodium 139 mmol/L (135-145); Total Bilirubin 0.8 mg/dl (0.2-1.3); Total Cholesterol 214 mg/dl (50-199); Total Protein 7.6 g/dl (6.3-8.2); Triglyceride 75 mg/dl (10-149); Very Low Density Lipoprotein 15 mg/dl (0-30); eGFR 58.01
[2024-02-14 09:12] LABS: Vitamin D, 25-OH*** 31.9 ng/mL (30-80)
[2024-02-14 14:45] LABS: Glycohemoglobin (HgbA1c) 6.7 % (4.0-5.6)
== END ==
LOC: REG 07:03
PROVIDERS: ATTENDING PHYSICIAN Nurse Practitioner Family
DX: E11.8 Type 2 diabetes mellitus with unspecified complications (principal); E55.9 Vitamin D deficiency, unspecified; E78.2 Mixed hyperlipidemia
CPT/HCPCS: 36415; 80053; 80061; 82306; 83036

== ENCOUNTER 2024-02-18 14:02 | Emergency (ER) | payer OTHER, SELFPAY ==
[2024-02-18 14:05] VITALS: BP 156/94
[2024-02-18 14:31] VITALS: BMI 27.2
[2024-02-18 14:38] VITALS: BP 161/75
[2024-02-18 15:00] VITALS: BP 156/74
[2024-02-18 15:07] LABS: % Basophils 0.3 % (0-2); % Eosinophils 0.1 % (0-6); % Immature Granulocytes 0.4 % (0-0.5); % Lymphocytes 8.2 % (20.5-51.1); % Monocytes 9.6 % (1.7-9.3); % Neutrophils 81.4 % (42.2-75.2); Absolute Immature Granulocytes 0.1 10^3/uL (0-0.05); Absolute Lymphocytes 1.1 10^3/uL (1.2-3.4); Absolute Monocytes 1.3 10^3/uL (0.1-0.6); Absolute Neutrophils 10.9 10^3/uL (1.4-6.5); Hematocrit 39.7 % (39.0-52.0); Hemoglobin 13.2 g/dL (13.0-18.0); Mean Corp Hgb Conc. 33.2 g/dL (33.0-37.0); Mean Corpuscular Hgb 25.5 pg (27.0-31.0); Mean Corpuscular Volume 76.6 fL (80.0-94.0); Mean Platelet Volume 9.6 fL (7.4-10.4); Nucleated Red Blood Cells % 0 % (-); Platelet Count 351 10^3/uL (130-400); Red Blood Cell Count 5.18 10^6/uL (4.70-6.10); Red Cell Dist. Width 14.6 % (11.5-14.5); White Blood Cell Count 13.4 10^3/uL (4.8-10.8)
[2024-02-18 15:16] LABS: ALT (SGPT) 16 U/L (0-50); AST (SGOT) 21 U/L (17-59); Albumin 3.5 g/dl (3.5-5.0); Alkaline Phosphatase 87 U/L (38-126); Blood Urea Nitrogen 24 mg/dl (9-20); Carbon Dioxide 26 mmol/L (22-30); Chloride 102 mmol/L (98-107); Estimated Creatinine Clearance 57 ml/min; Glucose 231 mg/dl (70-99); Sodium 138 mmol/L (135-145); Total Bilirubin 0.7 mg/dl (0.2-1.3); Total Protein 7.4 g/dl (6.3-8.2); eGFR > 60.00
--- NOTE | 2024-02-18 16:29 | ED.GENMED ---
History of Present Illness
General
Chief Complaint: Headache
Source: patient
Exam Limitations: none
Time Seen by Provider: 02/18/24 14:18
Nursing documentation reviewed up to this point in time: agreed with
History of Present Illness
History of Present Illness:
Patient to ED with left sided head pain, pain behind left eye, sinus pressue, congestions. Symptoms started approx 3 days ago. Denies fever/chills, n/v/d. Brought to ED by spouse or eval
Past History
Past History
ED Past Medical History: GERD, HTN and Other (Patient has had abscesses in the past on different parts of his body, rheumatoid arthritis); Negative Hypercholesterolemia, IDDM or NIDDM
ED Past Surgical History: None
Social History
Tobacco: Former smoker
Alcohol: None
Drug: None
Personal:
Living: with family
Employment: Retired
Review of Systems
Review of Systems
Allergies reviewed?: Yes
All Other Systems: ROS reviewed and negative except as documented in HPI and ROS
Constitutional: Reports no symptoms
EENT: Reports other (sinus pressure, congestion)
Respiratory: Reports no symptoms
Cardiac: Reports no symptoms
ABD/GI: Reports no symptoms
: Reports no symptoms
Musculoskeletal: Reports no symptoms
Skin: Reports no symptoms
Neurological: Reports headache
Psychiatric: Reports no symptoms
Phy Exam
General Physical Exam
General Presentation: well appearing and no apparent distress
General age: appears stated age
General Skin: warm and dry
General Habitus: normal
General Mental: alert
ENT Exam
ENT Exam: TM's normal, neck supple and swallowing well
Musculoskeletal Exam
Musculoskeletal Exam: full ROM and neuro vasc intact
Skin Exam
Skin Exam: normal color, warm/dry and no rash
Psychiatric Exam
Psychiatric Exam: normal mood/affect
Course
Orders/Labs/Results
Orders:
Orders
02/18/24 14:11
Electrocardiogram (*1) Urgent
Reason for Study: Other
Other Reason for Exam: left jaw pain
EKG- Treatment ONCE
02/18/24 14:52
CBC/With Diff [Complete Blood Count/With Diff] Urgent
Comprehensive Metabolic Panel Urgent
02/18/24 15:17
CT Head W/o Iv Contrast Urgent
Comment:
Reason For Exam: pain
Sinuses wo Contrast CT [CT Sinuses W/o Iv Contrast] Urgent
Comment:
Reason For Exam: pain
02/18/24 16:22
Amoxicillin 875 mg/Clav 125 mg [Augmentin 875 mg/125 mg] 1 tablet PO NOW STA
Hydrocodone 5/APAP 325 [[place] 5/325] 1 tablet PO NOW STA
Abnormal Lab Results
02/18/24
14:52
WBC 13.4 H 10^3/uL
(4.8-10.8)
MCV 76.6 L fL
(80.0-94.0)
MCH 25.5 L pg
(27.0-31.0)
RDW 14.6 H %
(11.5-14.5)
Abs Immat Gran (auto) 0.1 H 10^3/uL
(0-0.05)
Absolute Neuts (auto) 10.9 H 10^3/uL
(1.4-6.5)
Absolute Lymphs (auto) 1.1 L 10^3/uL
(1.2-3.4)
Absolute Monos (auto) 1.3 H 10^3/uL
(0.1-0.6)
Neutrophils % 81.4 H %
(42.2-75.2)
Lymphocytes % 8.2 L %
(20.5-51.1)
Monocytes % 9.6 H %
(1.7-9.3)
BUN 24 H mg/dl
(9-20)
Glucose 231 H mg/dl
(70-99)
02/18/24 14:52
02/18/24 14:52
Vital Signs
Initial and Last Documented VS:
Initial Vital Signs
Temp Pulse Resp BP Pulse Ox
97.9 F 71 20 156/94 92
02/18/24 14:05 02/18/24 14:05 02/18/24 14:05 02/18/24 14:05 02/18/24 14:05
Last Documented Vital Signs
Temp Pulse Resp BP Pulse Ox
97.9 F 71 20 156/94 92
02/18/24 14:05 02/18/24 14:05 02/18/24 14:05 02/18/24 14:05 02/18/24 14:05
*Radiology
Radiology exam reviewed: radiology read reviewed
*Pulse Oximetry
Patient hypoxic: no
*Critical Care Note
Total Time (30-74mins, 75-104mins- exclusive of procedures): Not Applicable
ED Attending Note
-
Portions of this chart may have been created with voice recognition software.� Occasional wrong word or��sound alike� substitutions may have occurred due to the inherent limitations of voice recognition software.
Discharge Plan
Departure
Patient Disposition: Home (Routine Discharge)
Date of Disposition: 02/18/24
Time of Disposition: 16:23
Patient with high blood pressure during this ER visit?: No
Condition: Good
Covid-19: Not Applicable
Discharge Problem:
Acute sinusitis
Instructions: Sinusitis in adults
Prescriptions:
New
amoxicillin-pot clavulanate 875-125 mg tablet
1 tab PO BID Qty: 20 0RF
hydrocodone-acetaminophen 5-325 mg tablet
1 tab PO Q4H PRN (Reason: Pain) Qty: 10 0RF
No Action
therapeutic multivitamin Tablet
1 tab PO DAILY Qty: 0
calcium carbonate [Tums] 200 mg calcium (500 mg) Tablet,Chewable
200 mg PO TIDPRN PRN (Reason: gerd)
Excedrin Extra Strength 250-250-65 mg Tablet
1 tab PO DAILYPRN PRN (Reason: headaches)
ferrous sulfate 325 mg (65 mg iron) tablet,delayed release (DR/EC)
325 mg PO DAILY
Eliquis 5 mg Tablet
5 mg PO BID Qty: 60 11RF
(DME) Contour Next Test Strips Strip
Qty: 200 0RF
Rx Instructions:
As Directed
insulin glargine [Lantus Solostar U-100 Insulin] 100 unit/mL (3 mL) Insulin Pen
20 unit SC DAILY Qty: 5 0RF
(DME) pen needle, diabetic [BD Ultra-Fine Zahraa Pen Needle] 32 gauge x ' Needle
Qty: 200 0RF
Rx Instructions:
As Directed
(DME) lancets [Color Lancets] 21 gauge Misc
Qty: 200 0RF
Rx Instructions:
As Directed
insulin lispro [Humalog KwikPen Insulin] 100 unit/mL insulin pen
10 unit SC TID Qty: 15 0RF
acetaminophen 325 mg Tablet
650 mg PO Q4HPRN PRN (Reason: mild pain and temp>100.4) Qty: 0 0RF
amiodarone [Pacerone] 200 mg Tablet
200 mg PO BID Qty: 60 0RF
metoprolol succinate 25 mg Tablet Extended Release 24 Hr
25 mg PO BID Qty: 60 0RF
Referrals:
Zarina Viveros CRNP [Family Provider] - Follow up in 2-3 days
Interventions
Interventions:
*Risk Screen - Suicide Last Done: 02/18/24 14:32
*General Assessment Last Done: 02/18/24 14:31
*ED COVID-19 Vaccine History Last Done: 02/18/24 14:31
Discharge Date and Time
Print Language: INDONESIAN
[2024-02-18] MEDS: AUGMENTIN 875 MG/125 MG 1 TABLET PO (16:42)
[2024-02-18] MEDS: NORCO 5/325 1 TABLET PO (16:42)
== END 2024-02-18 17:10 | disposition home or self-care (01) ==
LOC: EMR 14:02
PROVIDERS: EMERGENCY PHYSICIAN Emergency Medicine; FAMILY PHYSICIAN Nurse Practitioner Family
DX: J01.90 Acute sinusitis, unspecified (principal)
CPT/HCPCS: 99284; 70450; 70486; 80053; 85025; 93005

== ENCOUNTER → 2024-04-17 15:53 | Outpatient (REF) | payer OTHER, SELFPAY | LOC: RCS 15:53 | PROVIDERS: ATTENDING PHYSICIAN Internal Medicine Cardiovascular Disease; FAMILY PHYSICIAN Nurse Practitioner Family | DX: I48.91 Unspecified atrial fibrillation (principal); I42.9 Cardiomyopathy, unspecified | CPT/HCPCS: 93306 ==

== ENCOUNTER → 2024-06-15 07:02 | Outpatient (REF) | payer OTHER, SELFPAY ==
[2024-06-15 07:59] LABS: % Basophils 1.5 % (0-2); % Eosinophils 8.6 % (0-6); % Immature Granulocytes 0.4 % (0-0.5); % Lymphocytes 26.5 % (20.5-51.1); % Monocytes 9.9 % (1.7-9.3); % Neutrophils 53.1 % (42.2-75.2); Absolute Basophils 0.1 10^3/uL (0-0.2); Absolute Eosinophils 0.6 10^3/uL (0-0.7); Absolute Lymphocytes 1.9 10^3/uL (1.2-3.4); Absolute Monocytes 0.7 10^3/uL (0.1-0.6); Absolute Neutrophils 3.9 10^3/uL (1.4-6.5); Hematocrit 45.2 % (39.0-52.0); Hemoglobin 15.1 g/dL (13.0-18.0); Mean Corp Hgb Conc. 33.4 g/dL (33.0-37.0); Mean Corpuscular Hgb 28.2 pg (27.0-31.0); Mean Corpuscular Volume 84.5 fL (80.0-94.0); Mean Platelet Volume 10.4 fL (7.4-10.4); Nucleated Red Blood Cells % 0 % (-); Platelet Count 285 10^3/uL (130-400); Red Blood Cell Count 5.35 10^6/uL (4.70-6.10); Red Cell Dist. Width 14.6 % (11.5-14.5); White Blood Cell Count 7.3 10^3/uL (4.8-10.8)
[2024-06-15 08:37] LABS: ALT (SGPT) 22 U/L (0-50); AST (SGOT) 47 U/L (17-59); Alkaline Phosphatase 98 U/L (38-126); Blood Urea Nitrogen 23 mg/dl (9-20); Calcium 9.3 mg/dl (8.4-10.2); Carbon Dioxide 27 mmol/L (22-30); Chloride 96 mmol/L (98-107); Glucose 426 mg/dl (70-99); HDL Cholesterol 66 mg/dl; LDL Cholesterol, Calculated 170 mg/dl; Potassium 4.5 mmol/L (3.5-5.1); Sodium 134 mmol/L (135-145); Total Bilirubin 0.6 mg/dl (0.2-1.3); Total Cholesterol 260 mg/dl (50-199); Total Protein 7.6 g/dl (6.3-8.2); Triglyceride 124 mg/dl (10-149); Very Low Density Lipoprotein 24 mg/dl (0-30); eGFR > 60.00
[2024-06-15 08:41] LABS: Free T4 1.49 ng/dl (0.78-2.19)
[2024-06-15 08:55] LABS: TSH 0.28 uIU/ml (0.47-4.68)
[2024-06-15 09:20] LABS: Protein/creatinine Ratio 0.1; Urine Protein 9 mg/dl
[2024-06-15 09:24] LABS: Microalbumin, Random Urine 0.9 mg/dl (0.6-1.7); Microalbumin/creatinine Ratio 7.9 mg/g
[2024-06-18 00:32] LABS: C-Peptide 0.2 ng/mL (0.5-3.3)
[2024-06-18 00:33] LABS: Insulin, Random 25 uIU/mL
== END ==
LOC: REG 07:02
PROVIDERS: ATTENDING PHYSICIAN Internal Medicine Cardiovascular Disease; FAMILY PHYSICIAN Nurse Practitioner Family; REFERRING PHYSICIAN Physician Assistant
DX: I48.91 Unspecified atrial fibrillation (principal); E11.65 Type 2 diabetes mellitus with hyperglycemia
CPT/HCPCS: 36415; 80053; 80061; 82043; 82570; 83036; 83525; 84156; 84439; 84443; 84681; 85025

== ENCOUNTER → 2024-10-05 07:14 | Outpatient (REF) | payer OTHER, SELFPAY ==
[2024-10-05 08:50] LABS: % Basophils 1.7 % (0-2); % Eosinophils 10.5 % (0-6); % Immature Granulocytes 0.7 % (0-0.5); % Lymphocytes 36.1 % (20.5-51.1); % Monocytes 9.9 % (1.7-9.3); % Neutrophils 41.1 % (42.2-75.2); Absolute Basophils 0.1 10^3/uL (0-0.2); Absolute Eosinophils 0.8 10^3/uL (0-0.7); Absolute Immature Granulocytes 0.1 10^3/uL (0-0.05); Absolute Lymphocytes 2.7 10^3/uL (1.2-3.4); Absolute Monocytes 0.7 10^3/uL (0.1-0.6); Absolute Neutrophils 3.1 10^3/uL (1.4-6.5); Hematocrit 48.3 % (39.0-52.0); Hemoglobin 16.4 g/dL (13.0-18.0); Mean Corpuscular Hgb 29.6 pg (27.0-31.0); Mean Corpuscular Volume 87.2 fL (80.0-94.0); Mean Platelet Volume 10.4 fL (7.4-10.4); Nucleated Red Blood Cells % 0 % (-); Platelet Count 273 10^3/uL (130-400); Red Blood Cell Count 5.54 10^6/uL (4.70-6.10); White Blood Cell Count 7.5 10^3/uL (4.8-10.8)
[2024-10-05 09:10] LABS: ALT (SGPT) 24 U/L (0-50); AST (SGOT) 26 U/L (17-59); Albumin 4.2 g/dl (3.5-5.0); Alkaline Phosphatase 102 U/L (38-126); Blood Urea Nitrogen 19 mg/dl (9-20); Calcium 9.1 mg/dl (8.4-10.2); Carbon Dioxide 26 mmol/L (22-30); Chloride 99 mmol/L (98-107); Glucose 310 mg/dl (70-99); HDL Cholesterol 73 mg/dl; LDL Cholesterol, Calculated 179 mg/dl; Potassium 4.1 mmol/L (3.5-5.1); Sodium 135 mmol/L (135-145); Total Bilirubin 1.3 mg/dl (0.2-1.3); Total Cholesterol 278 mg/dl (50-199); Total Protein 7.5 g/dl (6.3-8.2); Triglyceride 130 mg/dl (10-149); Very Low Density Lipoprotein 26 mg/dl (0-30); eGFR > 60.00
[2024-10-05 09:20] LABS: Free T4 1.43 ng/dl (0.78-2.19)
[2024-10-05 09:34] LABS: TSH 2.69 uIU/ml (0.47-4.68)
[2024-10-05 10:26] LABS: Glycohemoglobin (HgbA1c) 11.4 % (4.0-5.6)
[2024-10-06 17:52] LABS: Thyroglobulin 24.1 ng/mL (1.3-31.8); Thyroglobulin Antibodies <0.9 IU/mL (0.0-4.0); Thyroid Peroxidase Ab (TPO) 0.5 IU/mL (0.0-9.0)
[2024-10-06 20:34] LABS: TSH Receptor Antibody <1.10 IU/L (<=1.75)
[2024-10-07 02:51] LABS: Thyroid Stim. Immunoglobulin <0.10 IU/L (<=0.54)
== END ==
LOC: REG 07:14
PROVIDERS: ATTENDING PHYSICIAN Physician Assistant; FAMILY PHYSICIAN Nurse Practitioner Family
DX: E11.65 Type 2 diabetes mellitus with hyperglycemia (principal); E05.90 Thyrotoxicosis, unspecified without thyrotoxic crisis or storm
CPT/HCPCS: 36415; 80053; 80061; 83036; 83520; 84432; 84439; 84443; 84445; 85025; 86376; 86800

== ENCOUNTER 2025-05-06 15:20 | Emergency (ER) | payer OTHER, SELFPAY ==
[2025-05-06 15:26] VITALS: BP 130/94
[2025-05-06 16:07] LABS: Hematocrit 51.5 % (39.0-52.0); Hemoglobin 17.6 g/dL (13.0-18.0); Mean Corp Hgb Conc. 34.2 g/dL (33.0-37.0); Mean Corpuscular Volume 86.0 fL (80.0-94.0); Nucleated Red Blood Cells % 0 % (-); Platelet Count 383 10^3/uL (130-400); Red Cell Dist. Width 12.2 % (11.5-14.5)
[2025-05-06 16:18] LABS: ALT (SGPT) 20 U/L (0-50); AST (SGOT) 22 U/L (17-59); Albumin 4.5 g/dl (3.5-5.0); Alkaline Phosphatase 108 U/L (38-126); Blood Urea Nitrogen 27 mg/dl (9-20); Calcium 12.0 mg/dl (8.4-10.2); Carbon Dioxide 26 mmol/L (22-30); Chloride 97 mmol/L (98-107); Glucose 426 mg/dl (70-99); Potassium 4.8 mmol/L (3.5-5.1); Sodium 133 mmol/L (135-145); Total Protein 8.6 g/dl (6.3-8.2); eGFR > 60.00
[2025-05-06 16:23] LABS: Troponin I < 0.012 ng/ml
[2025-05-06 18:00] VITALS: BP 151/92
--- NOTE | 2025-05-06 18:29 | ED.GENMED ---
History of Present Illness
<Tatiana De Oliveira NP - Last Filed: 05/06/25 23:42>
General
Chief Complaint: Chest Pain
Source: patient
Exam Limitations: none
Time Seen by Provider: 05/06/25 18:28
Nursing documentation reviewed up to this point in time: agreed with
History of Present Illness
History of Present Illness:
Patient to ED with complaint of chest pain and SOB this AM. State he was takng his daily walk when chest pain started. States he felt pain in center of chest and jaw. Denies n/v/diaphoresis. Reported SOB. States he returned home and symptoms
resolved with rest. He also reports severe bloating after eating and lower abd. pain. Passed a large amt of formed stool today and feels this is unusual for him. Brought self to ED for eval.
Past History
<Tatiana De Oliveira NP - Last Filed: 05/06/25 23:42>
Past History
ED Past Medical History: GERD, HTN and Other (Patient has had abscesses in the past on different parts of his body, rheumatoid arthritis); Negative Hypercholesterolemia, IDDM or NIDDM
ED Past Surgical History: None
Social History
Tobacco: Former smoker
Alcohol: None
Drug: None
Personal:
Living: with family
Employment: Retired
Review of Systems
<Tatiana De Oliveira NP - Last Filed: 05/06/25 23:42>
Review of Systems
Allergies reviewed?: Yes
All Other Systems: ROS reviewed and negative except as documented in HPI and ROS
Constitutional: Reports no symptoms
EENT: Reports no symptoms
Respiratory: Reports trouble breathing
Cardiac: Reports chest pain
ABD/GI: Reports abdominal pain and other (bloating)
: Reports no symptoms
Musculoskeletal: Reports no symptoms
Skin: Reports no symptoms
Neurological: Reports no symptoms
Psychiatric: Reports no symptoms
Phy Exam
<Tatiana De Oliveira NP - Last Filed: 05/06/25 23:42>
General Physical Exam
General Presentation: well appearing and no apparent distress
General age: appears stated age
General Skin: warm and dry
General Habitus: normal
General Mental: alert
Cardiovascular Exam
Cardiovascular Exam: regular rate/rhythm and no edema
Pulmonary Exam
Pulmonary Exam: lungs clear and no respiratory distress
Gastrointestinal Exam
Gastrointestinal Exam: normal bowel sounds, soft, no organomegaly, no pulsatile mass and non distended
Palpation: left upper quadrant: No tenderness, left lower quadrant: Moderate tenderness, right upper quadrant: No tenderness and right lower quadrant: Moderate tenderness
Musculoskeletal Exam
Musculoskeletal Exam: full ROM
Skin Exam
Skin Exam: normal color, warm/dry and no rash
Psychiatric Exam
Psychiatric Exam: normal mood/affect
Scores
<Tatiana De Oliveira NP - Last Filed: 05/06/25 23:42>
Heart Score for Chest Pain Patients
STEMI patient?: No
History: Moderately Suspicious
ECG: Normal
Age: >45 - <65 years
Risk Factors: >/= 3 Risk Factors or History of CAD
Troponin: </= Normal Limit
Heart Score for Chest Pain Patients: 4
Heart Score Risk: 20.3% MACE over next 6 weeks
Course
<Tatiana De Oliveira E MARKETING SPECIALIST - Last Filed: 05/06/25 23:42>
Orders/Labs/Results
Orders:
Orders
05/06/25 15:20
EKG [Electrocardiogram (*1)] Urgent
Reason for Study: Chest Pain
05/06/25 15:21
EKG- Treatment ONCE
05/06/25 15:34
Complete Blood Count/With Diff Urgent
Comprehensive Metabolic Panel Urgent
Lipase Urgent
Comment: ADD ON
Troponin I Urgent
05/06/25 18:47
CR Chest - 2 Views Urgent
Comment:
Reason For Exam: SOB
05/06/25 18:52
Add On- LAB Urgent
Tests Added?: lipase
Troponin I Urgent
05/06/25 19:02
CT Pe/abd/pel W Urgent
Comment:
Reason For Exam: Chest pain/SOB, abd pain/bloating
05/06/25 19:09
Insulin Aspart [NOVOLOG vial] 20 units SC NOW STA
05/06/25 19:10
0.9% Sodium Chloride 1000 ml [Nss] 1,000 ml IV BOLUS
05/06/25 19:11
Insulin Aspart [NOVOLOG vial] 10 units SC NOW STA
05/06/25 19:16
Urinalysis Reflex To Culture Urgent
Date Specimen was Collected: 05/06/25
Time Specimen was Collected: 19:10
Abnormal Lab Results
05/06/25 05/06/25
15:34 19:16
Abs Immat Gran (auto) 0.1 H 10^3/uL
(0-0.05)
Absolute Monos (auto) 1.0 H 10^3/uL
(0.1-0.6)
Immature Gran % 0.6 H %
(0-0.5)
Sodium 133 L mmol/L
(135-145)
Chloride 97 L mmol/L
(98-107)
BUN 27 H mg/dl
(9-20)
Glucose 426 H mg/dl
(70-99)
Calcium 12.0 H mg/dl
(8.4-10.2)
Total Protein 8.6 H g/dl
(6.3-8.2)
Urine Glucose 4+ A
(Negative)
05/06/25 15:34
05/06/25 15:34
Vital Signs
Initial and Last Documented VS:
Initial Vital Signs
Temp Pulse Resp BP Pulse Ox
97.8 F 97 15 130/94 95
05/06/25 15:26 05/06/25 15:26 05/06/25 15:26 05/06/25 15:26 05/06/25 15:26
Last Documented Vital Signs
Temp Pulse Resp BP Pulse Ox
97.8 F 85 23 151/87 95
05/06/25 15:26 05/06/25 20:45 05/06/25 20:45 05/06/25 20:00 05/06/25 20:45
<Joo Horta MD - Last Filed: 05/06/25 22:50>
Orders/Labs/Results
Orders:
Orders
05/06/25 15:20
EKG [Electrocardiogram (*1)] Urgent
Reason for Study: Chest Pain
05/06/25 15:21
EKG- Treatment ONCE
05/06/25 15:34
Complete Blood Count/With Diff Urgent
Comprehensive Metabolic Panel Urgent
Lipase Urgent
Comment: ADD ON
Troponin I Urgent
05/06/25 18:47
CR Chest - 2 Views Urgent
Comment:
Reason For Exam: SOB
05/06/25 18:52
Add On- LAB Urgent
Tests Added?: lipase
Troponin I Urgent
05/06/25 19:02
CT Pe/abd/pel W Urgent
Comment:
Reason For Exam: Chest pain/SOB, abd pain/bloating
05/06/25 19:09
Insulin Aspart [NOVOLOG vial] 20 units SC NOW STA
05/06/25 19:10
0.9% Sodium Chloride 1000 ml [Nss] 1,000 ml IV BOLUS
05/06/25 19:11
Insulin Aspart [NOVOLOG vial] 10 units SC NOW STA
05/06/25 19:16
Urinalysis Reflex To Culture Urgent
Date Specimen was Collected: 05/06/25
Time Specimen was Collected: 19:10
Abnormal Lab Results
05/06/25 05/06/25
15:34 19:16
Abs Immat Gran (auto) 0.1 H 10^3/uL
(0-0.05)
Absolute Monos (auto) 1.0 H 10^3/uL
(0.1-0.6)
Immature Gran % 0.6 H %
(0-0.5)
Sodium 133 L mmol/L
(135-145)
Chloride 97 L mmol/L
(98-107)
BUN 27 H mg/dl
(9-20)
Glucose 426 H mg/dl
(70-99)
Calcium 12.0 H mg/dl
(8.4-10.2)
Total Protein 8.6 H g/dl
(6.3-8.2)
Urine Glucose 4+ A
(Negative)
05/06/25 15:34
05/06/25 15:34
Vital Signs
Initial and Last Documented VS:
Initial Vital Signs
Temp Pulse Resp BP Pulse Ox
97.8 F 97 15 130/94 95
05/06/25 15:26 05/06/25 15:26 05/06/25 15:26 05/06/25 15:26 05/06/25 15:26
Last Documented Vital Signs
Temp Pulse Resp BP Pulse Ox
97.8 F 85 23 151/87 95
05/06/25 15:26 05/06/25 20:45 05/06/25 20:45 05/06/25 20:00 05/06/25 20:45
<Tatiana De Oliveira NP - Last Filed: 05/06/25 23:42>
*Radiology
Radiology exam reviewed: radiology read reviewed
*Pulse Oximetry
SaO2: 95
Oxygen Mode of Delivery: Room air
Patient hypoxic: no
*Critical Care Note
Total Time (30-74mins, 75-104mins- exclusive of procedures): Not Applicable
<Tatiana De Oliveira NP - Last Filed: 05/06/25 23:42>
Update Note
Update Note:
Patient to ED with report of chest pain, jaw pain while walking this AM. No SOB, n/v/diaphoresis. Pain resolved with rest. No further episodes reported VSS, he remains afebrile. Labs reviewed. glucose 426 noted. He reports taking AM and
afternoon insulin today. Given evening dose in ED. All other labs stable. Troponin neg. He also reports diffuse abdominal pain States he has a history of diverticulitis and believes his abdominal symptoms in the past were similar. CT
abd/pelvis, CT chest results reviewed with him. No findings to explain his symptoms today. Case discssed with Dr. Horta who also evaluated patient. Will discharge home tonight. Placed on chest pain harris line, will recommend cardiology evaluation
for his exertional cp.
ED Attending Note
<Tatiana De Oliveira NP - Last Filed: 05/06/25 23:42>
-
Portions of this chart may have been created with voice recognition software.� Occasional wrong word or��sound alike� substitutions may have occurred due to the inherent limitations of voice recognition software.
<Joo Horta MD - Last Filed: 05/06/25 22:50>
ED Attending Note
Patient seen and examined by attending physician: Yes
ED Attending Note:
I have seen and evaluated the patient with a [id number] encounter. I have spoken to the advance practicer provider and involved in the medical history, the physical exam, medical decision making.
Evaluation and management service: agree unless noted differently below.
Results interpretation: agree unless noted differently below.
Focused HPI: 75-year-old male with history as noted presents for evaluation after an episode of chest pain and shortness of breath today. He goes for a daily walk and reports that today on his walk he started to have chest discomfort and felt short
of breath. He says his chest discomfort was a pressure that radiated towards his jaw. He says that he was not able to continue his walk due to the chest pain, he went home and chest pain resolved with rest. He is now not having any chest pain.
He also reports that he has had increased abdominal bloating and belching particular postprandial. No vomiting, no diarrhea.
Physical exam: Awake and alert not in distress. Hypertensive otherwise normal vitals. He has no cardiac rubs Murmurs. Lungs sound clear to auscultation bilaterally. Abdomen soft, minimally tender in the epigastrium. No edema in the legs.
Medical Decision Makin-year-old male presents for evaluation after an episode of chest pain on exertion this morning that resolved with rest. He also has been complaining of abdominal discomfort and bloating particularly after meals. Vitals
and exam as above. Labs were sent off including a CBC and a CMP which showed hyperglycemia in the setting of known diabetes�treated with home insulin. No signs of DKA. Troponins undetectable x 2. CT chest shows no PE or other acute
abnormalities, CT abdomen shows diverticulosis but no diverticulitis. Regarding chest pain�nothing to suggest an acute coronary syndrome at this point but certainly symptoms could be anginal and he needs to be seen by coater associate. Will refer for
close follow-up of ER chest pain hotline. Regarding abdominal discomfort�could be GERD/gastritis, no clear emergent pathology on CT. Stable for discharge to follow-up with PCP.
Discharge Plan
Departure
Patient Disposition: Home (Routine Discharge)
Date of Disposition: 05/06/25
Time of Disposition: 20:51
Patient with high blood pressure during this ER visit?: No
Condition: Good
Covid-19: Not Applicable
Discharge Problem:
Chest pain
Instructions: Chest Pain DCA Follow Up
Prescriptions:
No Action
therapeutic multivitamin Tablet
1 tab PO DAILY Qty: 0
calcium carbonate [Tums] 200 mg calcium (500 mg) Tablet,Chewable
200 mg PO TIDPRN PRN (Reason: gerd)
Excedrin Extra Strength 250-250-65 mg Tablet
1 tab PO DAILYPRN PRN (Reason: headaches)
ferrous sulfate 325 mg (65 mg iron) tablet,delayed release (DR/EC)
325 mg PO DAILY
Eliquis 5 mg Tablet
5 mg PO BID Qty: 60 11RF
(DME) Contour Next Test Strips Strip
Qty: 200 0RF
Rx Instructions:
As Directed
insulin glargine [Lantus Solostar U-100 Insulin] 100 unit/mL (3 mL) Insulin Pen
20 unit SC DAILY Qty: 5 0RF
(DME) pen needle, diabetic [BD Ultra-Fine Zahraa Pen Needle] 32 gauge x 5/32' Needle
Qty: 200 0RF
Rx Instructions:
As Directed
(DME) lancets [Color Lancets] 21 gauge Misc
Qty: 200 0RF
Rx Instructions:
As Directed
insulin lispro [Humalog KwikPen Insulin] 100 unit/mL insulin pen
10 unit SC TID Qty: 15 0RF
acetaminophen 325 mg Tablet
650 mg PO Q4HPRN PRN (Reason: mild pain and temp>100.4) Qty: 0 0RF
amiodarone [Pacerone] 200 mg Tablet
200 mg PO BID Qty: 60 0RF
metoprolol succinate 25 mg Tablet Extended Release 24 Hr
25 mg PO BID Qty: 60 0RF
amoxicillin-pot clavulanate 875-125 mg tablet
1 tab PO BID Qty: 20 0RF
hydrocodone-acetaminophen 5-325 mg tablet
1 tab PO Q4H PRN (Reason: Pain) Qty: 10 0RF
Referrals:
Zarina Viveros CRNP [Family Provider, Family Practice]
Yadiel Terrazas, [Active, Cardiology] - Call in 1-3 days for appt
Activity Restrictions/Additional Instructions:
Return to the emergency department immediately for any changes in/worsening of your symptoms. I have placed you on the chest pain hotline. You should hear from the cardiology office tomorrow to set up a follow up appointment. If you do not hear
from the tomorrow, please call and schedule your appointment.
Interventions
Interventions:
*Risk Screen - Suicide Last Done: 05/06/25 15:26
*General Assessment Last Done: 05/06/25 15:26
*Neglect/Abuse Screening Last Done: 05/06/25 15:26
*ED- Fall Risk Assessment Last Done: 05/06/25 18:04
*ED COVID-19 Vaccine History Last Done: 05/06/25 15:26
*Nursing Disposition Last Done: 05/06/25 21:07
ED- Cardiac Assessment Last Done: 05/06/25 18:04
Discharge Date and Time
Discharge Date/Time: 05/06/25 21:14
Print Language: SWEDISH
[2025-05-06 19:00] VITALS: BP 142/101
[2025-05-06 19:09] VITALS: BMI 25.6
[2025-05-06] MEDS: NOVOLOG vial 10 UNITS SC (19:13)
[2025-05-06] MEDS: NSS 1000 IV (19:16)
[2025-05-06 19:23] LABS: Urine Character Clear (Clear)
[2025-05-06 19:24] LABS: Troponin I < 0.012 ng/ml
[2025-05-06 19:34] LABS: Lipase 259 U/L (23-300)
[2025-05-06 20:00] VITALS: BP 151/87
== END 2025-05-06 21:14 | disposition home or self-care (01) ==
LOC: EMR 15:20
PROVIDERS: Nurse Practitioner; Student in an Organized Health Care Education/Training Program; EMERGENCY PHYSICIAN Emergency Medicine; FAMILY PHYSICIAN Nurse Practitioner Family
DX: R07.9 Chest pain, unspecified (principal); R06.02 Shortness of breath; I10 Essential (primary) hypertension; E11.9 Type 2 diabetes mellitus without complications; M06.9 Rheumatoid arthritis, unspecified; Z87.891 Personal history of nicotine dependence
CPT/HCPCS: 99285; 96360; 96372; 71046; 71275; 74177; 80053; 81003; 83690; 84484; 85025; 93005; Q9967

== ENCOUNTER → 2025-06-21 07:19 | Outpatient (REF) | payer OTHER, SELFPAY ==
[2025-06-21 08:35] LABS: Hematocrit 47.8 % (39.0-52.0); Hemoglobin 15.8 g/dL (13.0-18.0); Mean Corp Hgb Conc. 33.1 g/dL (33.0-37.0); Mean Corpuscular Volume 89.2 fL (80.0-94.0); Nucleated Red Blood Cells % 0 % (-); Platelet Count 341 10^3/uL (130-400); Red Cell Dist. Width 12.0 % (11.5-14.5)
[2025-06-21 09:08] LABS: ALT (SGPT) 18 U/L (0-50); AST (SGOT) 21 U/L (17-59); Albumin 4.0 g/dl (3.5-5.0); Alkaline Phosphatase 108 U/L (38-126); Blood Urea Nitrogen 17 mg/dl (9-20); Calcium 11.7 mg/dl (8.4-10.2); Carbon Dioxide 28 mmol/L (22-30); Chloride 97 mmol/L (98-107); Glucose 406 mg/dl (70-99); HDL Cholesterol 57 mg/dl; LDL Cholesterol, Calculated 174 mg/dl; Potassium 4.9 mmol/L (3.5-5.1); Sodium 130 mmol/L (135-145); Total Protein 8.3 g/dl (6.3-8.2); Very Low Density Lipoprotein 35 mg/dl (0-30); eGFR > 60.00
[2025-06-21 09:29] LABS: TSH 2.15 uIU/ml (0.47-4.68)
[2025-06-21 10:14] LABS: Glycohemoglobin (HgbA1c) 10.5 % (4.0-5.9)
== END ==
LOC: REG 07:19
PROVIDERS: ATTENDING PHYSICIAN Physician Assistant; FAMILY PHYSICIAN Nurse Practitioner Family
DX: E11.65 Type 2 diabetes mellitus with hyperglycemia (principal); E78.5 Hyperlipidemia, unspecified; E05.90 Thyrotoxicosis, unspecified without thyrotoxic crisis or storm
CPT/HCPCS: 36415; 80053; 80061; 83036; 84439; 84443; 85025